=== PATIENT | male | born 1960 | race Caucasian/White ===

== ENCOUNTER 2016-06-11 17:58 | Inpatient (IN) | payer MEDICAID, OTHER ==
[~2016-06-11] VITALS: Ht 185.4 cm; Wt 127.0 kg
[2016-06-11 18:29] VITALS: BP 159/106
--- NOTE | 2016-06-11 18:45 | NUR ---
PT TAKEN TO BED 3.
--- NOTE | 2016-06-11 19:07 | NUR ---
PT RETURN FROM CT
--- NOTE | 2016-06-11 19:12 | NUR ---
Dr. Ho evaluating patient at bedside.
--- NOTE | 2016-06-11 19:30 | NUR ---
55Y MALE CAME TO ER C/O OF NUMBNESS AND TINGLING SENSATION TO LEFT SIDE OF THE BODY WITH MILD WEAK TO LT ARM. FACE ASSYMETRICAL AND SPEECH CLEAR, ALERT AND ORIENTED. ANSWERS [place] APPROPRIATELY. DENIES PAIN. V/S MONITORED (SEE VS) NEURO ASSESMENT DONE (SEE NEURO CHECK).
[2016-06-11] MEDS ORDERED: ASPIRIN 325 MG TAB PO ONE (20:05)
[2016-06-11] MEDS ORDERED: DOCUSATE SODIUM 100 MG GELCAP PO PRN (20:45)
[2016-06-11] MEDS ORDERED: ONDANSETRON 4 MG/2 ML VIAL IVP PRN (20:45)
[2016-06-11] MEDS ORDERED: MORPHINE SULFATE 2 MG/ML SYR IVP PRN (20:45)
[2016-06-11] MEDS ORDERED: ACETAMINOPHEN 325 MG TAB PO PRN (20:45)
[2016-06-11] MEDS ORDERED: HYDROcodone/APAP 5/325 MG 1 TAB TAB PO PRN (20:45)
--- NOTE | 2016-06-11 21:26 | NUR ---
Patient will be admitted to care of DR. CARTWRIGHT. Admited to TELE. Will go to room 106B. Belongings list completed. Report to CHICA Norman RN.
--- NOTE | 2016-06-11 21:30 | NUR ---
Admitted from E.. with chief complaint of LEFT SIDED WEAKNESS AND NUMBNESS. A 55 y/o. Male, Appropriate. ALERT AWAKE ORIENTED X4. INITIAL ASSESSMENT DONE. NO S/S OF RESPIRATORY DISTRESS OR SOB NOTED. NO C/O PAIN OR ANY DISCOMFORT AT THIS TIME. SKIN IS INTACT CLEAN DRY AND WARM TO TOUCH. PLAN OF CARE REVIEWED TO PT AND VERBALIZED UNDERSTANDING. oriented to call light, bed, phone,television, bathroom, smoking policy, visiting hours, procedures, ID bracelet on. Belongings list checked. CALL LIGHT WITHIN REACH. WILL CONTINUE TO MONITOR.
[2016-06-11] MEDS: ATORVASTATIN 20 MG TAB PO SCH (21:44)
[2016-06-12] VITALS: BP 139/95
--- NOTE | 2016-06-12 00:40 | NUR ---
PT IS ASLEEP RIGHT NOW BUT EASILY AROUSABLE. NO S/S OF ANY DISCOMFORT AT THIS TIME. ALL NEEDS ARE ATTENDED. CALL LIGHT WITHIN REACH. WILL CONTINUE TO MONITOR.
--- NOTE | 2016-06-12 03:00 | NUR ---
PT REFUSED TO HAVE SCD'S ON DESPITE EXPLAINING THE RISKS AND BENEFITS OF IT. WILL TRY TO CONVINCE HIM LATER. WILL CONTINUE TO MONITOR.
[2016-06-12 04:00] VITALS: BP 143/94
--- NOTE | 2016-06-12 06:00 | NUR ---
AM CARE RENDERED. BED LINEN CHANGED. INSTRUCTED PT TO REPOSITION. KEPT CLEAN AND DRY. CALL LIGHT WITHIN REACH. WILL CONTINUE TO MONITOR.
--- NOTE | 2016-06-12 07:16 | NUR ---
PT HAS NO S/S OF ANY DISCOMFORT. PLAN OF CARE ENDORSED TO KEISHA LA AT BEDSIDE FOR CONTINUITY OF CARE.
--- NOTE | 2016-06-12 07:17 | NUR ---
RECEIVED REPORT FROM BESSIE COTO. PT IS LYING ON BED, AAO X4, SKIN INTACT, IV ON RIGHT HAND FLUSHED PATENT AND INTACT ON SL, INITIAL ASSESSMENT DONE, NO S/S OF RESPIRATORY DISTRESS OR DISCOMFORT NOTED, DISCUSSED PLAN OF CARE, PT VERBALIZED UNDERSTANDING, SAFETY/FALL PRECAUTION ENFORCED, CALL LIGHT WITHIN REACH, WILL CONTINUE TO MONITOR.
[2016-06-12 08:00] VITALS: BP 149/94
--- NOTE | 2016-06-12 08:09 | NUR ---
DR. PEDRAZA IS IN THE NURSE'S STATION.
[2016-06-12] MEDS: PANTOPRAZOLE 40 MG TABEC PO SCH (08:13)
[2016-06-12] MEDS: ATORVASTATIN 20 MG TAB PO SCH (08:13)
--- NOTE | 2016-06-12 08:16 | NUR ---
DUE MEDS GIVEN, PT TOLERATED WELL, MEDICAL STUDENT AT BEDSIDE ASSESSING PT. CALL LIGHT WITHIN REACH, WILL CONTINUE TO MONITOR.
--- NOTE | 2016-06-12 08:30 | NUR ---
PATIENT HAS BEEN SCREENED AND CATEGORIZED MODERATE NUTRITION RISK. PATIENT WILL BE SEEN WITHIN 3-5 DAYS OF ADMISSION. 06/14/16-06/16/[address] Addendum: 06/12/16 at [address] PATIENT HAS BEEN RESCREENED AND RE CATEGORIZED HIGH NUTRITION RISK. PATIENT WILL BE SEEN WITHIN 1-2 DAYS OF ADMISSION. 06/12/16-06/13/[address]
[2016-06-12] MEDS ORDERED: ASPIRIN 81 MG TAB.CHEW PO SCH (09:00)
[2016-06-12] MEDS: NACL 0.9% 1,000 ML IV SCH ×3 (09:51→20:56)
--- NOTE | 2016-06-12 09:55 | NUR ---
PHYSICAL THERAPIST AT BEDSIDE WORKING ON PT.
[2016-06-12] MEDS ORDERED: MAG SULF 2000 MG/WATER PREMIX 50 ML IV SCH (10:00)
--- NOTE | 2016-06-12 11:25 | NUR ---
PT IS SLEEPING AT THIS TIME, NO S/S OF RESPIRATORY DISTRESS OR DISCOMFORT NOTED, CALL LIGHT WITHIN REACH, WILL CONTINUE TO MONITOR.
[2016-06-12 12:00] VITALS: BP 152/74
--- NOTE | 2016-06-12 14:09 | NUR ---
ULTRASOUND IS IN PROGRESS AT THIS TIME.
[2016-06-12 16:00] VITALS: BP 121/78
--- NOTE | 2016-06-12 16:46 | NUR ---
* ST NOTE * Bedside Dysphagia and Oral Mechanism exams completed at bedside with charge nurse present. Pt tolerating 8/8 alternating PO trials of regular solid saltine crackers w/out s/s of aspiration, exhibiting no residue or pocketing of food in oral cavity after PO intake. Pt also tolerating 6/6 alternating PO trials of successive sips of thin liquid apple juice via a straw w/out s/s of aspiration. Pt exhibiting clear voicing WFL w/out wet or gargly vocal quality after PO intake of thin liquids. Pt's laryngeal elevation and laryngeal excursion also appearing WFL w/out delay. Pt and caregiver/nursing education completed regarding results of evaluation; benefits of abiding by aspiration precautions and recommended PO diet consistency; and prognosis for improvement; with pt and caregiver/nursing agreeable with clinician's recommendations. Recommend: - PO diet consistency of Mechanical soft textures with thin liquids for all meals - Distal supervision during PO intake to assure aspiration precautions are in place No further ST follow up recommended at this time. G8996 G8997 CI G8998 CI NOMS Level 2 Time In/Out: 16:25 - 16:55
[2016-06-12] MEDS: BLOOD GLUCOSE MONITORING 1 DEV DEV FS SCH ×2 (16:51→20:58)
[2016-06-12] MEDS: INSULIN ASPART SLIDING SCALE 100 UNITS/ML VIAL SUBQ PRN ×2 (17:35→21:01)
--- NOTE | 2016-06-12 17:37 | NUR ---
DINNER SERVED, PT HAS GOOD APPETITE, NO S/S OF RESPIRATORY DISTRESS OR DISCOMFORT NOTED, ALL NEEDS MET AT THIS TIME, CALL LIGHT WITHIN REACH, WILL CONTINUE TO MONITOR.
--- NOTE | 2016-06-12 19:15 | NUR ---
ENDORSED PT TO BESSIE MANDUJANO FOR CONTINUITY OF CARE. PT IS STABLE AT THIS TIME.
--- NOTE | 2016-06-12 19:16 | NUR ---
RECEIVED PT IN STABLE CONDITION FROM BESSIE VALDES. NO SOB, NO SIGNS OF DISTRESS. VS STABLE ON ROOM AIR. IV TO RT HAND 20G PATENT, ASYMPTOMATIC, INTACT, IVF RUNNING. PT DENIES PAIN AT THIS TIME. PT WITH LT SIDED WEAKNESS, AMBULATES WITH STANDBY ASSIST. SKIN INTACT. PLAN OF CARE DISCUSSED WITH PT. SAFETY MEASURES IN PLACE. CALL LIGHT WITHIN REACH. WILL CONTINUE TO MONITOR.
[2016-06-12 20:00] VITALS: BP 150/90
--- NOTE | 2016-06-12 21:01 | NUR ---
PT TOLERATED DUE MEDS WELL. NO SOB, NO SIGNS OF DISTRESS. IV SITE ASYMPTOMATIC, INTACT, PATENT, IVF RUNNING. PT DENIES PAIN AT THIS TIME. PLAN OF CARE DISCUSSED WITH PT. SAFETY MEASURES IN PLACE. CALL LIGHT WITHIN REACH. WILL CONTINUE TO MONITOR.
--- NOTE | 2016-06-12 23:50 | NUR ---
VS STABLE ON ROOM AIR. NO SOB, NO SIGNS OF DISTRESS. IV SITE ASYMPTOMATIC, INTACT, PATENT, IVF RUNNING. PT DENIES PAIN AT THIS TIME. PLAN OF CARE DISCUSSED WITH PT. SAFETY MEASURES IN PLACE. CALL LIGHT WITHIN REACH. WILL CONTINUE TO MONITOR.
[2016-06-13] VITALS: BP 124/94
--- NOTE | 2016-06-13 02:00 | NUR ---
PT ASLEEP IN BED. NO SOB, NO SIGNS OF DISTRESS. IV SITE ASYMPTOMATIC, INTACT, PATENT, IVF RUNNING, REPLACED IVF BAG. SAFETY MEASURES IN PLACE. CALL LIGHT WITHIN REACH. WILL CONTINUE TO MONITOR.
[2016-06-13] MEDS: NACL 0.9% 1,000 ML IV SCH ×3 (02:30→11:32)
[2016-06-13 04:00] VITALS: BP 143/93
--- NOTE | 2016-06-13 06:15 | NUR ---
FOUND PT WITH IV TO RT HAND PULLED OUT. CANNULA INTACT. CT HERE TO TAKE PT FOR CT. WILL START IV WHEN PT RETURNS TO FLOOR. NO SOB, NO SIGNS OF DISTRESS. PT DENIES PAIN AT THIS TIME. PT LEFT FOR CT.
[2016-06-13] MEDS: BLOOD GLUCOSE MONITORING 1 DEV DEV FS SCH ×2 (06:22→11:31)
[2016-06-13] MEDS: INSULIN ASPART SLIDING SCALE 100 UNITS/ML VIAL SUBQ PRN ×2 (06:23→12:06)
--- NOTE | 2016-06-13 07:00 | NUR ---
STARTED NEW IV TO RT FE 20G PATENT, ASYMPTOMATIC, INTACT, IVF RUNNING. PT TOLERATED WELL.
--- NOTE | 2016-06-13 07:05 | NUR ---
ENDORSED PT IN STABLE CONDITION TO BESSIE GIPSON. ALL NEEDS HAVE BEEN MET AT THIS TIME.
--- NOTE | 2016-06-13 07:06 | NUR ---
RECEIVED REPORT FROM PEDIATRIC PHYSICIAN BESSIE MANDUJANO. PT IS A/O X 4 AND AMBULATORY. RFA 20 IV, PATENT AND INTACT. LBM 06/13/16. NO S/S OF ACUTE CARDIAC/RESPIRATORY DISTRESS OR DISCOMFORT. SAFETY MEASURES IN PLACE, CALL LIGHT WITHIN REACH. WILL CONTINUE PLAN OF CARE AND CONTINUE TO MONITOR.
[2016-06-13 07:51] VITALS: BP 155/100
[2016-06-13] MEDS ORDERED: ASPIRIN 325 MG TAB PO SCH (09:00)
[2016-06-13] MEDS: ATORVASTATIN 20 MG TAB PO SCH (09:13)
[2016-06-13] MEDS: PANTOPRAZOLE 40 MG TABEC PO SCH (09:13)
--- NOTE | 2016-06-13 10:11 | NUR ---
PT IS RESTING WITH HIS EYES CLOSED. NO S/S OF ACUTE DISTRESS OR DISCOMFORT. CALL LIGHT WITHIN REACH, WILL CONTINUE TO MONITOR.
[2016-06-13 12:00] VITALS: BP 119/77
--- NOTE | 2016-06-13 12:13 | NUR ---
PT RESTING WITH EYES CLOSED. NO S/S OF ACUTE DISTRESS OR DISCOMFORT. PT WILL BE SEEN BY PT NOW. CALL LIGHT WITHIN REACH. WILL CONTINUE TO MONITOR.
--- NOTE | 2016-06-13 13:04 | NUR ---
06/13/16 RD INITIAL ASSESSMENT COMPLETED PLEASE REFER TO NUTRITION ASSESSMENT UNDER CARE ACTIVITY FOR ESTIMATED NUTRITIONAL NEEDS. RD RECOMMENDATIONS: 1. CONTINUE CCHO 60 GM DIET MEDICALLY APPROPRIATE. --NOTE PT CURRENTLY MEETS 55% OF PT ESTIMATED KCAL NEEDS AND 47% OF PT ESTIMATED PROTEIN NEEDS WITH AN AVG PO INTAKE OF 55%. --FAIR 2. IF/WHEN PT APPETITE IMPROVES, CONSIDER ADDING CARDIAC DIET TO CURRENT DIET D/T PT WITH PMH OF HTN AND HLD. --NOTE SINCE PT APPETITE IS NOT ADEQUATE AT THIS MOMENT, THERE IS NO NEED TO ADD ANOTHER RESTRICTION ONTO PT DIET. 3. RD LEFT DM DIET EDUCATION HANDOUT NEAR PT BEDSIDE. RD WILL FOLLOW UP WITH DIET EDUCATION DURING NEXT VISIT. 4. RD WILL F/U 3-5 DAYS; MODERATE RISK. LAVERN MACEDO RD
--- NOTE | 2016-06-13 14:21 | NUR ---
PHYSICAL THERAPY CO-SIGN The Physical Therapy Progress Notes documented by Map And Chart Mounter have been reviewed. I CONCUR W/SERVICE SECRETARY NOTE; CONT PER TX PLAN Reviewed/Co-Signed by: Evelyne Frazier PT Documentation Done by: RUSSELL PUENTE SERVICE SECRETARY Addendum: 06/13/16 at 1421 by Evelyne Frazier PT Amended: Links added.
--- NOTE | 2016-06-13 14:55 | NUR ---
PT IS SLEEPING. NO S/S OF ACUTE DISTRESS OR DISCOMFORT. CALL LIGHT WITHIN REACH. WILL CONTINUE TO MONITOR.
[2016-06-13] MEDS ORDERED: ASPIRIN325 M2 PO (15:13)
[2016-06-13] MEDS ORDERED: ATORVASTATIN CA20 MG PO (15:13)
[2016-06-13] MEDS ORDERED: CARVEDILOL6.25 MG PO (15:13)
[2016-06-13] MEDS ORDERED: LISINOPRIL10 M1 PO (15:15)
[2016-06-13] MEDS ORDERED: METFORMIN850 MG PO (15:16)
--- NOTE | 2016-06-13 15:45 | NUR ---
DISCHARGE INSTRUCTIONS PROVIDED TO PT, PT VERBALIZED UNDERSTANDING. PT SIGNED DISCHARGE PAPERWORK, PROVIDED A COPY. ARM BANDS REMOVED. IV REMOVED, INTACT. PT HAS NO S/S OF ACUTE DISTRESS OR DISCOMFORT. PT IN STABLE CONDITION. WHEELCHAIRED PT TO FRONT LOBBY TO BE PICKED UP BY FRIEND.
== END 2016-06-13 15:45 | disposition home or self-care (01) | DRG 45 ==
LOC: MED 17:58 → MTU 20:41
PROVIDERS: ADMIT Family Medicine; ATTEND Family Medicine
DX: I63.9 Cerebral infarction, unspecified (principal); K85.90 Acute pancreatitis without necrosis or infection, unspecified; D68.69 Other thrombophilia; I42.9 Cardiomyopathy, unspecified; E11.51 Type 2 diabetes mellitus with diabetic peripheral angiopathy without gangrene; E11.65 Type 2 diabetes mellitus with hyperglycemia; G81.94 Hemiplegia, unspecified affecting left nondominant side; G90.9 Disorder of the autonomic nervous system, unspecified; E83.42 Hypomagnesemia; I10 Essential (primary) hypertension; E78.5 Hyperlipidemia, unspecified; F15.10 Other stimulant abuse, uncomplicated; Z68.36 Body mass index [BMI] 36.0-36.9, adult; Z86.73 Personal history of transient ischemic attack (TIA), and cerebral infarction without residual deficits

== ENCOUNTER 2018-06-04 02:25 | Emergency (ER) | payer MEDICAID, OTHER ==
[~2018-06-04] VITALS: Ht 185.4 cm; Wt 122.5 kg
[~2018-06-04 02:25] MED LIST: ASPI-1205 PO; ATOR20TA40 PO; CARV6.252 PO; LISI10TA11 PO; METF-350 PO
[2018-06-04 02:29] VITALS: BP 117/70
--- NOTE | 2018-06-04 02:33 | NUR ---
To bed 12 via w/c.
[2018-06-04] MEDS ORDERED: NACL 0.9% 1,000 ML IV ONE ×2 (02:35→03:40)
[2018-06-04] MEDS ORDERED: KETOROLAC 30 MG/ML VIAL IVP ONE (02:35)
--- NOTE | 2018-06-04 02:35 | NUR ---
ASSUMED CARE OF PT AT THIS TIME. C/O COLD/FLU SYMPTOMS X 3 DAYS. AAOX4 WITH EVEN AND STEADY GAIT; PATIENT STATES PAIN OF 5/10; VSS; PATIENT POSITIONED FOR COMFORT; HOB ELEVATED; BEDRAILS UP X2; BED DOWN. ER MD MADE AWARE OF PT STATUS. WILL CONTINUE TO MONITOR.
[2018-06-04] MEDS ORDERED: MORPHINE SULFATE 4 MG/ML SYR IVP ONE (03:05)
[2018-06-04] MEDS ORDERED: MORPHINE SULFATE 2 MG/ML SYR ONE (03:20)
[2018-06-04 04:20] VITALS: BP 127/80
--- NOTE | 2018-06-04 04:20 | NUR ---
Patient discharged with v/s stable. Written and verbal after care instructions given and explained. Patient alert, oriented and verbalized understanding of instructions. Ambulatory with steady gait. All questions addressed prior to discharge. ID band removed. Patient advised to follow up with PMD. Rx of MOTRIN, PREDNISONE, AND NORCO given. Patient educated on indication of medication including possible reaction and side effects. Opportunity to ask questions provided and answered.
== END 2018-06-04 04:20 | disposition home or self-care (01) ==
LOC: MED 02:25
DX: R50.9 Fever, unspecified (principal); R00.0 Tachycardia, unspecified; M25.561 Pain in right knee; R05 Cough; J34.89 Other specified disorders of nose and nasal sinuses; I11.0 Hypertensive heart disease with heart failure; I50.9 Heart failure, unspecified; E11.9 Type 2 diabetes mellitus without complications; F17.200 Nicotine dependence, unspecified, uncomplicated; Z86.73 Personal history of transient ischemic attack (TIA), and cerebral infarction without residual deficits; Z79.82 Long term (current) use of aspirin; Z79.84 Long term (current) use of oral hypoglycemic drugs; Z79.899 Other long term (current) drug therapy; Z98.890 Other specified postprocedural states
CPT/HCPCS: 36415; 87804; 96374; 96375; 99283; J1885; J2270; J7030

== ENCOUNTER 2018-06-05 09:19 | Inpatient (IN) | payer OTHER ==
[~2018-06-05] VITALS: Ht 185.4 cm; Wt 121.6 kg
--- NOTE | 2018-06-05 09:23 | NUR ---
PATIENT AMBULATED TO BED 8.
[2018-06-05 09:26] VITALS: BP 120/89
--- NOTE | 2018-06-05 09:27 | NUR ---
PATIENT PRESENTS TO ED WITH C/O LEFT FACIAL SWELLING W/ TENDERNESS AND RIGHT KNEE PAIN. DENIES ANY TRAUMA;DENIES SHORTNESS OF BREATH/ CP.PT WAS SEEN HERE IN ER YETSERDAY FOR A FLU.PT HAD A STROKE 2 YEARS AGO AND HAS LEFT SIDED WEAKNESS;SKIN IS PINK/WARM/DRY; AAOX4 WITH EVEN AND STEADY GAIT;PATIENT STATES PAIN OF 5/10 AT THIS TIME;PATIENT POSITIONED FOR COMFORT; HOB ELEVATED; BEDRAILS UP X2; BED DOWN. ER MD MADE AWARE OF PT STATUS.
[2018-06-05] MEDS ORDERED: NACL 0.9% 1,000 ML IV SCH (09:45)
[2018-06-05] MEDS ORDERED: MORPHINE SULFATE 4 MG/ML SYR IVP ONE (09:55)
[2018-06-05] MEDS ORDERED: VANCOMYCIN 1,000 MG in DEXTROSE 5% 250 ML IV ONE (09:55)
[2018-06-05] MEDS ORDERED: VANCOMYCIN 1,000 MG VIAL ONE (10:05)
--- NOTE | 2018-06-05 10:08 | NUR ---
xray at bedside.
--- NOTE | 2018-06-05 10:16 | NUR ---
PT TAKEN TO CT
[2018-06-05 10:31] LABS: HEMATOCRIT 40.7 % (36-52); HEMOGLOBIN 13.5 g/dL (12.0-18.0); MEAN CORPUSCULAR HEMOGLOBIN 30 pg (27-31); MEAN CORPUSCULAR HGB CONC 33 g/dL (33-37); MEAN CORPUSCULAR VOLUME 91.5 fL (80-94); PLATELET COUNT (AUTO) 295 K/uL (140-450); RED BLOOD CELL COUNT(AUTO) 4.45 MIL/uL (4.20-6.10); RED CELL DISTRIBUTION WIDTH 14.7 % (11.6-13.7)
[2018-06-05 10:37] LABS: WHITE BLOOD COUNT (AUTO) 33.9 K/uL (4.8-10.8)
--- NOTE | 2018-06-05 10:41 | NUR ---
LACTIC ACID 2.7, RESULT RECEIVED FROM LAB AT THIS TIME. HA RUIZ NOTIFIED.
[2018-06-05 10:43] LABS: PROTHROMBIN TIME 9.7 secs (10.8-13.4)
[2018-06-05] MEDS ORDERED: NACL 0.9% 3,000 ML IV ONE (10:50)
[2018-06-05 10:52] LABS: LYMPHOCYTES % (MANUAL) 3 % (20-46); MONOCYTES % (MANUAL) 2 % (5-12)
[2018-06-05 11:41] LABS: ALBUMIN 1.9 g/dL (3.4-5.0); ANION GAP 13.4 (8-16); CARBON DIOXIDE 27.5 mmol/L (21-32); CREATININE 1.5 mg/dL (0.7-1.3); POTASSIUM 3.9 mmol/L (3.5-5.1); TOTAL BILIRUBIN 0.6 mg/dL (0.0-1.0)
--- NOTE | 2018-06-05 11:44 | NUR ---
PT RESTING ON BED; ALL MONITORS IN PLACED. WILL CONTINUE TO MONITOR PT.
--- NOTE | 2018-06-05 12:45 | NUR ---
Patient will be admitted to care of Dr Magaña. Admited to Med Surg. Will go to [id number]. Belongings list completed. Report to BESSIE Zhao.
--- NOTE | 2018-06-05 13:00 | NUR ---
RECEIVED PT FROM THE ED NURSE. PT IS ALERT AND AWAKE, NO S/S OF ACUTE DISTRESS, NO SOB. PT IS ON ROOM AIR. L NECK AND CHEST AREA NOTED TO BE RED AND EDEMATOUS, (NO DRAINAGE OR OPEN SKIN). VARICOSE VEINS NOTED ON BILATERAL ANKLES. INTERMITTENT PRODUCTIVE COUGH NOTED. NARES SWABBED FOR MRSA. TWO IV SITES NOTED: LAC 20 G, AND RAC 20 G. CURRENTLY COMPLETING NS BOLUS INFUSION. PT IS TACHYCARDIC, 125 BPM AT THIS TIME. FT IS AFEBRILE, 98.0 ORAL TEMP. PT IS HYPERTENSIVE, BP 160/83 AT ADMISSION. PT C/O R KNEE PAIN. FALL PRECAUTIONS PLACED DUE TO PT UNSTEADY DUE TO KNEE PAIN. PT ALSO C/O SOME WEAKNESS WHILE AMBULATING. CALL LIGHT GIVEN WITHIN REACH. WILL CONT TO MONITOR.
[2018-06-05 13:10] VITALS: BP 160/83
[2018-06-05] MEDS ORDERED: ONDANSETRON 4 MG/2 ML VIAL IVP PRN (14:00)
[2018-06-05] MEDS ORDERED: MORPHINE SULFATE 2 MG/ML SYR IVP PRN (14:00)
[2018-06-05] MEDS ORDERED: VANCOMYCIN PER PHARMACY MC PRN (14:00)
[2018-06-05] MEDS ORDERED: ACETAMINOPHEN 325 MG TAB PO PRN (14:00)
[2018-06-05] MEDS ORDERED: hydrALAZINE 20 MG/ML VIAL IVP PRN (14:25)
--- NOTE | 2018-06-05 14:25 | NUR ---
PT SEEN BY DR FLOWERS
[2018-06-05] MEDS ORDERED: ALBUTEROL 0.083% 2.5 MG/3 ML NEBU INH PRN (14:30)
[2018-06-05] MEDS ORDERED: VANCOMYCIN 750 MG in DEXTROSE 5% 250 ML IV SCH (15:00)
[2018-06-05] MEDS ORDERED: PIPER/TAZO 3.375GM/D5W PREMIX 50 ML IV SCH ×2 (15:00→21:00)
[2018-06-05] MEDS: NACL 0.9% 1,000 ML IV SCH (15:01)
[2018-06-05 16:00] VITALS: BP 123/66
--- NOTE | 2018-06-05 16:30 | NUR ---
PT'S R AC IV CAME OUT. CATHETER TIP IS INTACT. SITE CLEANED AND COVERED WITH GAUZE.
--- NOTE | 2018-06-05 16:45 | NUR ---
PT HAVING R KNEE X-RAY AT THIS TIME
[2018-06-05] MEDS: CARVEDILOL 6.25 MG TAB PO SCH (17:13)
[2018-06-05] MEDS: VANCOMYCIN 1GM/DEXT 5% PREMIX 200 ML IV SCH (17:13)
--- NOTE | 2018-06-05 17:40 | NUR ---
PT NOTED TO BE FEBRILE. TEMP 100.9. TYLENOL ADMINISTERED AND COOLING MEASURES IN PLACE. DR NEWMAN NOTIFIED. WILL CONTINUE TO MONITOR PT.
[2018-06-05] MEDS ORDERED: DEXTROSE 50% 50 ML SYR IVP PRN (17:45)
--- NOTE | 2018-06-05 18:01 | NUR ---
SCD'S PLACED ON PT. PT EATING DINNER NOW, NO S/S OF ACUTE DISTRESS.
--- NOTE | 2018-06-05 18:31 | NUR ---
RECHECKED PT'S TEMP, 98.4 AT THIS TIME.
--- NOTE | 2018-06-05 19:25 | NUR ---
PT ENDORSED TO GAMBLING BOX PERSON IN STABLE CONDITION.
--- NOTE | 2018-06-05 19:35 | NUR ---
PATIENT IS AWAKE, ALERT, RESPIRATION EVEN UNLABORED ON ROOM AIR. SKIN IS WARM AND DRY. REDNESS AND EDEMATOUS NOTED ON LEFT NECK AND CHEST. IV IS INTACT AND PATENT. PLAN OF CARE WAS DISCUSSED. ALL SAFETY PRECAUTION IN PLACE. BED IS IN LOW POSITION. CALL LIGHT WITHIN REACH.
--- NOTE | 2018-06-05 20:00 | NUR ---
PATIENT IS AWAKE, ALERT RESPIRATION EVEN UNLABORED ON ROOM AIR. DENIES PAIN. VITAL SIGNS STABLE. MEDS WERE GIVEN PER ORDER. WILL CONTINUE TO MONITOR.
[2018-06-05] MEDS: BLOOD GLUCOSE MONITORING 1 DEV DEV FS SCH (20:04)
[2018-06-05] MEDS: INSULIN LISPRO SLIDING SCALE 100 UNITS/ML VIAL SUBQ PRN (20:05)
[2018-06-05] MEDS ORDERED: VANCOMYCIN 1,500 MG in DEXTROSE 5% 250 ML IV SCH (21:00)
[2018-06-05] MEDS ORDERED: AMPICILLIN/SULBACTAM 3 GM VIAL ONE (23:40)
[2018-06-05] MEDS: AMPICILLIN/SULBACTAM 3 GM in NACL 0.9% 100 ML IV SCH (23:43)
[2018-06-06] VITALS: BP 126/65
--- NOTE | 2018-06-06 00:40 | NUR ---
PATIENT ASKED FOR SLEEPING AID. DUE TO INABILITY TO FALL ASLEEP. SPOKE TO DR. MEJIA ABOUT THE SITUATION. ORDERED AMBIEN 5MG PO QHS PRN FOR INSOMIA.
[2018-06-06] MEDS ORDERED: ZOLPIDEM 5 MG TAB PO PRN (00:45)
[2018-06-06] MEDS: VANCOMYCIN 1GM/DEXT 5% PREMIX 200 ML IV SCH ×2 (01:00→11:34)
--- NOTE | 2018-06-06 01:00 | NUR ---
RECHECKED PATIENT SLEEPING AID WAS EFFECTIVE. PATIENT IS ASLEEP RESPIRATION EVEN UNLABORED ON ROOM AIR. NO DISTRESS NOTED AT THIS TIME. BED IS IN LOW POSITION. CALL LIGHT WITHIN REACH. WILL CONTINUE TO MONITOR.
[2018-06-06] MEDS: AMPICILLIN/SULBACTAM 3 GM in NACL 0.9% 100 ML IV SCH ×2 (05:26→13:51)
[2018-06-06] MEDS ORDERED: AMPICILLIN/SULBACTAM 3 GM VIAL ONE (05:27)
[2018-06-06] MEDS: INSULIN LISPRO SLIDING SCALE 100 UNITS/ML VIAL SUBQ PRN ×3 (06:09→16:55)
[2018-06-06] MEDS: BLOOD GLUCOSE MONITORING 1 DEV DEV FS SCH ×3 (06:12→16:48)
[2018-06-06 06:53] LABS: HEMOGLOBIN 12.8 g/dL (12.0-18.0); MEAN CORPUSCULAR HEMOGLOBIN 30 pg (27-31); MEAN CORPUSCULAR HGB CONC 33 g/dL (33-37); MEAN CORPUSCULAR VOLUME 91.4 fL (80-94); PLATELET COUNT (AUTO) 292 K/uL (140-450); RED BLOOD CELL COUNT(AUTO) 4.27 MIL/uL (4.20-6.10); RED CELL DISTRIBUTION WIDTH 14.8 % (11.6-13.7)
--- NOTE | 2018-06-06 07:18 | NUR ---
ENDORSED PATIENT TO AM NURSE CARLIN FOR CONTINUITY OF CARE. PATIENT IS STABLE AT THIS TIME
--- NOTE | 2018-06-06 07:19 | NUR ---
RECEIVED BEDSIDE REPORT FROM FLAME HARDENING MACHINE SETTER NURSE. PATIENT IS SLEEPING. NO SIGNS OF DISTRESS ON RA. SKIN HAS L NECK ABSCESS W EDEMA TO THE L SIDE. PATIENT IS AMBULATORY W ASSIST D/T R KNEE PAIN. FALL RISK PROTOCOL IN PLACE. L AC 20G INFUSING NS AT 30. CLEAN, DRY AND INTACT. PATIENT INCONTINENT. BED IN LOW POSITION. CALL LIGHT WITHIN REACH. WILL CONTINUE TO MONITOR THE PATIENT.
[2018-06-06 07:31] LABS: ALBUMIN 1.4 g/dL (3.4-5.0); ANION GAP 9.7 (8-16); CARBON DIOXIDE 26.4 mmol/L (21-32); CREATININE 1.2 mg/dL (0.7-1.3); POTASSIUM 3.1 mmol/L (3.5-5.1); TOTAL BILIRUBIN 1.1 mg/dL (0.0-1.0)
[2018-06-06 07:43] LABS: WHITE BLOOD COUNT (AUTO) 30.5 K/uL (4.8-10.8)
[2018-06-06 07:44] LABS: LYMPHOCYTES % (MANUAL) 6 % (20-46)
[2018-06-06 07:45] LABS: MONOCYTES % (MANUAL) 4 % (5-12)
[2018-06-06 08:00] VITALS: BP 138/90
[2018-06-06] MEDS ORDERED: NON-FORMULARY ITEM (Lisinopril 1 TAB) PO SCH (09:00)
[2018-06-06] MEDS ORDERED: ASPIRIN 325 MG TAB PO SCH (09:00)
[2018-06-06] MEDS ORDERED: ATORVASTATIN 20 MG TAB PO SCH (09:00)
[2018-06-06] MEDS ORDERED: NON-FORMULARY ITEM (Atorvastatin Calcium 40 MG) PO SCH (09:00)
[2018-06-06] MEDS ORDERED: ENOXAPARIN 40 MG/0.4 ML SYR SUBQ SCH (09:00)
[2018-06-06] MEDS ORDERED: LISINOPRIL 10 MG TAB PO SCH (09:00)
[2018-06-06] MEDS: CARVEDILOL 6.25 MG TAB PO SCH ×2 (09:07→16:47)
--- NOTE | 2018-06-06 09:10 | NUR ---
ADMINISTERED MEDS, PATIENT TOLERATED WELL. WILL CONTINUE TO MONITOR THE PATIENT
--- NOTE | 2018-06-06 10:45 | NUR ---
DR FLOWERS SAID TO TRANSFER THE PATIENT TO [facility], TOLD [employer] CHARGE NURSE.
--- NOTE | 2018-06-06 11:36 | NUR ---
DR MORATAYA AWARE OF BLOOD CX POSITIVE GRAM COCCI IN CHAINS AND PAIRS. HE SAID PATIENT IS OK AND GOING TO BE TRANSFERRED SO NO CHANGES IN ORDERS.
[2018-06-06] MEDS ORDERED: POTASSIUM CHLORIDE 40 MEQ, LIDOCAINE MPF 1% - 5 mL VIAL 25 MG in NACL 0.9% 250 ML IV SCH (12:00)
--- NOTE | 2018-06-06 12:16 | NUR ---
ADMINISTERED PRN HUMALOG. PATIENT TOLERATED WELL. FAMILY AT BEDSIDE. WILL CONTINUE TO MONITOR
--- NOTE | 2018-06-06 12:39 | NUR ---
PATIENT SMOKED IN THE RESTROOM. TOLD PATIENT HE IS NOT ALLOWED TO DO THAT. HE SAID I DIDNT LET HIM GO OUTSIDE SO HE SMOKED IN THE RESTROOM. PATIENT SAID OK. TOLD HIM THE RISKS OF SMOKING AT THE HOSPITAL, OXYGEN, FIRE ALARM, ETC. PATIENT VERBALIZED UNDERSTANDING. TOLD PATIENT HE NEEDS TO STAY IN BED D/T WEAKNESS. PATIENT REFUSES AND SITTING AT THE CHAIR. TOLD HIM HE IS A HIGH RISK FOR FALLS.
[2018-06-06] MEDS: NACL 0.9% 1,000 ML IV SCH (14:00)
--- NOTE | 2018-06-06 14:47 | NUR ---
PATIENT GETTING A BED BATH FROM THE TWO STUDENT NURSES. AFTER PATIENT WILL GO ON WHEELCHAIR AND BE WHEELED AROUND W STEP BROTHER. WILL CHANGE BED WHILE PATIENT IS WALKING AROUND THE HALLS.
--- NOTE | 2018-06-06 15:10 | NUR ---
PATIENT GETTING WHEELED AROUND THE HALLS BY STEP BROTHER. STUDENT NURSES CHANGING THE BED AT THIS TIME
[2018-06-06 16:00] VITALS: BP 110/55
--- NOTE | 2018-06-06 17:30 | NUR ---
GAVE TELEPHONE REPORT TO LEVI CHARGE NURSE. NO SIGNS OF DISTRESS. BED IN LOW POSITION. WILL CONTINUE TO MONITOR
--- NOTE | 2018-06-06 19:15 | NUR ---
EDUCATED PATIENT ON DISEASE PROCESS, ABN S/SX, EDUCATED ON ENT DOCTOR TO SEE PATIENT IN [place], PATIENT VERBALIZED UNDERSTANDING. GAVE REPORT TO [facility] STAFF. PATIENT LEFT IN STABLE CONDITION W IV ON L AC 20G SL. REMOVED ID BANDS.
--- NOTE | 2018-06-07 14:10 | NUR ---
CM NOTE PER ZARINA OF [facility] PH# [phone], THE EARLIEST AVAILABLE CLINIC APPOINTMENT THEY HAVE IS ON JULY 23, 2018, 2:00 PM AT THE CLINIC AT [address] [place] [address] [place] [id number] AND THEY ARE AWARE THAT THIS IS AN OUTPATIENT FOLLOW UP APPOINTMENT POST HOSPITAL ADMISSION. PER ZARINA, DR[facility] WILL BE UNAVAILABLE DURING THAT TIME AND PATIENT WILL BE SEEN BY DR. VICTOR FOR THIS OUTPATIENT FOLLOW UP. SPOKE WITH PATIENT PH# [phone] AND I GAVE HIM HIS OUTPATIENT FOLLOW UP SCHEDULE.
--- NOTE | 2018-06-07 22:33 | NUR ---
Called BESSIE Healy, pt's primary nurse at [facility], and notified him of Blood culture result. Faxed result to his attention to with confirmation.
== END 2018-06-06 19:15 | disposition short-term general hospital (02) | DRG 720 ==
LOC: MED 09:19 → MTU 12:19
PROVIDERS: ADMIT Hospitalist; ATTEND Hospitalist
DX: A41.9 Sepsis, unspecified organism (principal); E43 Unspecified severe protein-calorie malnutrition; I11.0 Hypertensive heart disease with heart failure; L89.154 Pressure ulcer of sacral region, stage 4; I50.9 Heart failure, unspecified; K94.22 Gastrostomy infection; L02.11 Cutaneous abscess of neck; L03.221 Cellulitis of neck; E11.9 Type 2 diabetes mellitus without complications; I25.10 Atherosclerotic heart disease of native coronary artery without angina pectoris; F17.210 Nicotine dependence, cigarettes, uncomplicated; Z79.82 Long term (current) use of aspirin; Z79.899 Other long term (current) drug therapy; Z86.73 Personal history of transient ischemic attack (TIA), and cerebral infarction without residual deficits; Z88.1 Allergy status to other antibiotic agents; Z86.61 Personal history of infections of the central nervous system
CPT/HCPCS: 36415; 70490; 71045; 73562; 76536; 80053; 80202; 82550; 82948; 83605; 84550; 85025; 85610; 85730; 87040; 87081; 87186; 93005; 96361; 96365; 96366; 96375; 99285; J0295; J1650; J1815; J2001; J2270; J2543; J3370; J3480; J7030; J7060; Q0092

== ENCOUNTER 2018-07-02 12:02 | Inpatient (IN) | payer OTHER ==
[~2018-07-02] VITALS: Ht 182.9 cm; Wt 125.6 kg
[2018-07-02 12:21] VITALS: BP 151/89
--- NOTE | 2018-07-02 13:13 | NUR ---
PT BIB FAMILY C/O BILAT LOW LEG SWELLING/EDEMA OFF AND ON X YEARS PAIN 11/03, DENIES N/V/D; SKIN IS PINK/WARM/DRY; AAOX4 WITH EVEN AND STEADY GAIT; LUNGS CLEAR BL; HR EVEN AND REGULAR; PT DENIES ANY FEVER, CP, SOB, OR COUGH AT THIS TIME; PATIENT STATES PAIN OF RIGHT KNEE 11/03 AT THIS TIME; PATIENT POSITIONED FOR COMFORT; HOB ELEVATED; BEDRAILS UP X2; BED DOWN. ER MD MADE AWARE OF PT STATUS.
[2018-07-02] MEDS ORDERED: NACL 0.9% 500 ML IV SCH (13:31)
[2018-07-02] MEDS ORDERED: ONDANSETRON 4 MG/2 ML VIAL IVP ONE (13:35)
[2018-07-02] MEDS ORDERED: MORPHINE SULFATE 4 MG/ML SYR IM ONE (13:35)
[2018-07-02] MEDS ORDERED: MORPHINE SULFATE 4 MG/ML SYR IVP ONE (14:20)
[2018-07-02 14:22] LABS: BASOPHILS # (AUTO) 0.1 K/uL (0.00-0.22); BASOPHILS % (AUTO) 0.8 % (0.0-2.0); EOSINOPHILS # (AUTO) 0.6 K/uL (0-0.4); EOSINOPHILS % (AUTO) 6.3 % (0.0-4.0); HEMATOCRIT 26.2 % (36-52); HEMOGLOBIN 8.6 g/dL (12.0-18.0); LYMPHOCYTES # (AUTO) 1.9 K/uL (2.0-11.5); LYMPHOCYTES % (AUTO) 18.8 % (20.5-51.1); MEAN CORPUSCULAR HEMOGLOBIN 30 pg (27-31); MEAN CORPUSCULAR HGB CONC 33 g/dL (33-37); MEAN CORPUSCULAR VOLUME 90.3 fL (80-94); MONOCYTES # (AUTO) 0.8 K/uL (0.8-1.0); MONOCYTES % (AUTO) 7.8 % (1.7-9.3); NEUTROPHILS # (AUTO) 6.8 K/uL (1.8-7.7); NEUTROPHILS % (AUTO) 66.3 % (42.2-75.2); RED CELL DISTRIBUTION WIDTH 16.2 % (11.6-13.7); WHITE BLOOD COUNT (AUTO) 10.2 K/uL (4.8-10.8)
[2018-07-02 14:34] LABS: PLATELET COUNT (AUTO) 768 K/uL (140-450)
[2018-07-02 14:43] LABS: PROTHROMBIN TIME 11.9 secs (10.8-13.4)
[2018-07-02 14:53] LABS: ACETONE, SERUM NEGATIVE (NEGATIVE)
[2018-07-02 14:55] LABS: ANION GAP 10.9 (8-16); CARBON DIOXIDE 28.6 mmol/L (21-32); POTASSIUM 3.5 mmol/L (3.5-5.1)
[2018-07-02 14:58] LABS: ALBUMIN 2.1 g/dL (3.4-5.0); TOTAL BILIRUBIN 0.3 mg/dL (0.0-1.0)
[2018-07-02 15:27] LABS: MAGNESIUM 1.4 mg/dL (1.8-2.4); URIC ACID 4.2 mg/dL (2.6-7.2)
[2018-07-02] MEDS ORDERED: LORazepam 2 MG/ML VIAL IVP PRN (16:30)
[2018-07-02] MEDS ORDERED: HYDROcodone/APAP 5/325 MG 1 TAB TAB PO PRN (16:30)
[2018-07-02] MEDS ORDERED: ONDANSETRON 4 MG/2 ML VIAL IVP PRN (16:30)
[2018-07-02] MEDS ORDERED: ACETAMINOPHEN 325 MG TAB PO PRN (16:30)
[2018-07-02] MEDS ORDERED: DEXTROSE 50% 50 ML SYR IVP PRN (16:40)
--- NOTE | 2018-07-02 17:24 | NUR ---
PT TAKEN OFF THE UNIT FOR CT ABD/CHEST VIA GURNEY BY FINISHER POLISHER JADEN
[2018-07-02 17:46] LABS: APPEARANCE,URINE CLEAR (CLEAR); BILIRUBIN,URINE 1+ (NEGATIVE); BLOOD, URINE 2+ (NEGATIVE); COLOR,URINE YELLOW (YELLOW); LEUKOCYTE ESTERASE ,URINE NEGATIVE (NEGATIVE); NITRITE, URINE NEGATIVE (NEGATIVE); UGLUCOSE NEGATIVE (NEGATIVE)
[2018-07-02 17:51] LABS: BARBITURATE, URINE NEG. ng/ml (NEG <=200); BENZODIAZEPINE, URINE NEG. ng/mL (NEG <=200); CANNABINOID, URINE NEG. ng/mL (NEG <=50); COCAINE, URINE NEG. ng/mL (NEG <=300); OPIATE, URINE NEG. ng/mL (NEG <=2000); PHENCYCLIDINE SCREEN,URINE NEG. ng/mL (NEG <=25)
[2018-07-02 18:03] LABS: RBC,URINE 11-20 (MOD) /HPF (0-5); WBC,URINE 0-5 /HPF (0-5)
--- NOTE | 2018-07-02 18:35 | NUR ---
RECEIVED BEDSIDE REPORT FROM ER NURSE. PT STABLE, AWAKE, ALERT AND ORIENTED X4. NO SIGNS OF DISTRESS NOTED. DENIES PAIN OR SOB. NO REDNESS, SWELLING, OR INFLAMMATION NOTED ON IV SITES. CALL SOMMER WITHIN REACH. BED IN LOWEST POSITION. SAFETY MEASURES IN PLACE. PLAN OF CARE REVIEWED.
--- NOTE | 2018-07-02 18:35 | NUR ---
Patient will be admitted to care of Dr. Fortune. Admited to Tele. Will go to room 105B. Belongings list completed. Report to Ann Marie Herrera RN.
--- NOTE | 2018-07-02 19:05 | NUR ---
ENDORSED PT TO RN SAGRARIO FOR CONTINUITY OF CARE. PT STABLE, AWAKE, AND ALERT.
--- NOTE | 2018-07-02 19:06 | NUR ---
RECEIVED REPORT FROM DAY SHIFT NURSE BESS DUNNE AT BEDSIDE. PT RESTING IN BED, AOX4, ON ROOM AIR WITH RIGHT FA #20G AND LEFT AC #20G- BOTH SL. USES WHEELCHAIR AT HOME. BANDAID FOUND ON RIGHT KNEE FROM ARTHROSCOPY 1 WEEK AGO AT [facility]. LEFT LOWER EXTREMITY +2 PITTING EDEMA, RIGHT LOWER EXTREMITY +3 PITTING EDEMA AND RED. DISCUSSED PLAN OF CARE AND PT VERBALIZED UNDERSTANDING. NO S/S OF RESPIRATORY DISTRESS OR DISCOMFORT NOTED AT THIS TIME. BED IN LOWEST POSITION, BED BREAKS ON, BOTH SIDE RAILS UP AND FALL PRECAUTIONS IN PLACE. BEDSIDE TABLE AND CALL LIGHT ARE WITHIN REACH. WILL CONTINUE TO MONITOR.
[2018-07-02] MEDS: ALBUTEROL 0.083% 2.5 MG/3 ML NEBU IH SCH (19:46)
[2018-07-02 20:00] VITALS: BP 145/96
--- NOTE | 2018-07-02 20:00 | NUR ---
VITAL SIGNS TAKEN AND TOLERATED WELL. BLOOD GLUCOSE 132- NO INSULIN COVERAGE NEEDED. NO S/S OF RESPIRATORY DISTRESS OR DISCOMFORT NOTED AT THIS TIME. WILL CONTINUE TO MONITOR.
[2018-07-02] MEDS: BLOOD GLUCOSE MONITORING 1 DEV DEV FS SCH (20:12)
[2018-07-02] MEDS: CARVEDILOL 6.25 MG TAB PO SCH (20:14)
[2018-07-02] MEDS: HYDROcodone/APAP 5/325 MG 1 TAB TAB PO PRN (20:14)
--- NOTE | 2018-07-02 20:14 | NUR ---
PT C/O RIGHT KNEE PAIN 11/03- NORCO GIVEN AND TOLERATED WELL. NO S/S OF RESPIRATORY DISTRESS OR DISCOMFORT NOTED AT THIS TIME. WILL CONTINUE TO MONITOR.
--- NOTE | 2018-07-02 20:16 | NUR ---
SCHEDULED MEDICATION GIVEN AND TOLERATED WELL. NO S/S OF RESPIRATORY DISTRESS OR DISCOMFORT NOTED AT THIS TIME. WILL CONTINUE TO MONITOR.
--- NOTE | 2018-07-02 22:00 | NUR ---
PT CONTINUES TO SLEEP IN BED. NO S/S OF RESPIRATORY DISTRESS OR DISCOMFORT NOTED AT THIS TIME. WILL CONTINUE TO MONITOR.
[2018-07-03] VITALS: BP 148/86
--- NOTE | 2018-07-03 | NUR ---
VITAL SIGNS TAKEN AND TOLERATED WELL. NO S/S OF RESPIRATORY DISTRESS OR DISCOMFORT NOTED AT THIS TIME. WILL CONTINUE TO MONITOR.
[2018-07-03] MEDS: ALBUTEROL 0.083% 2.5 MG/3 ML NEBU IH SCH ×4 (01:08→18:54)
--- NOTE | 2018-07-03 02:00 | NUR ---
PT CONTINUES TO SLEEP IN BED. NO S/S OF RESPIRATORY DISTRESS OR DISCOMFORT NOTED AT THIS TIME. WILL CONTINUE TO MONITOR.
[2018-07-03 04:00] VITALS: BP 159/94
--- NOTE | 2018-07-03 04:00 | NUR ---
VITAL SIGNS TAKEN AND TOLERATED WELL. PT C/O RIGHT KNEE PAIN 11/03- WILL MEDICATE WITH NORCO. NO S/S OF RESPIRATORY DISTRESS OR DISCOMFORT NOTED AT THIS TIME. WILL CONTINUE TO MONITOR.
[2018-07-03] MEDS: HYDROcodone/APAP 5/325 MG 1 TAB TAB PO PRN ×4 (04:35→20:23)
--- NOTE | 2018-07-03 04:35 | NUR ---
NORCO GIVEN FOR PAIN. PT TOLERATED WELL. NO S/S OF RESPIRATORY DISTRESS OR DISCOMFORT NOTED AT THIS TIME. WILL CONTINUE TO MONITOR.
--- NOTE | 2018-07-03 06:00 | NUR ---
BLOOD GLUCOSE 159- WILL ADMINISTER INSULIN COVERAGE. PT TOLERATED WELL. NO S/S OF RESPIRATORY DISTRESS OR DISCOMFORT NOTED AT THIS TIME. WILL CONTINUE TO MONITOR.
[2018-07-03] MEDS: BLOOD GLUCOSE MONITORING 1 DEV DEV FS SCH ×4 (06:39→20:23)
[2018-07-03] MEDS: INSULIN LISPRO SLIDING SCALE 100 UNITS/ML VIAL SUBQ PRN ×4 (06:42→20:29)
--- NOTE | 2018-07-03 06:42 | NUR ---
INSULIN COVERAGE GIVEN AND TOLERATED WELL. NO S/S OF RESPIRATORY DISTRESS OR DISCOMFORT NOTED AT THIS TIME. WILL CONTINUE TO MONITOR.
--- NOTE | 2018-07-03 07:12 | NUR ---
RECEIVED BEDSIDE REPORT FROM BESSIE ZABALA. PT STABLE, AWAKE, ALERT AND ORIENTED X4. NO SIGNS OF DISTRESS NOTED. DENIES PAIN OR SOB. ON 2L NC. NO REDNESS, SWELLING, OR INFLAMMATION NOTED ON IV SITE. CALL SOMMER WITHIN REACH. BED IN LOWEST POSITION. SAFETY MEASURES IN PLACE. PLAN OF CARE REVIEWED.
--- NOTE | 2018-07-03 07:13 | NUR ---
ENDORSED PT CARE TO DAY SHIFT NURSE BESS DUNNE FOR CONTINUITY OF CARE.
--- NOTE | 2018-07-03 07:14 | NUR ---
RECEIVED PATIENT ON 1L NASAL CANNULA, PULSE OX SAT 92%. SCHEDULED BREATHING TREATMENT ADMINISTERED. TOLERATED TX WELL, NO ADVERSE SIDE EFFECTS. NO RESPIRATORY DISTRESS NOTED. RETURNED PATIENT TO NASAL CANNULA. WILL CONTINUE TO MONITOR.
[2018-07-03 07:53] LABS: ALBUMIN 2.1 g/dL (3.4-5.0); ANION GAP 11.2 (8-16); CARBON DIOXIDE 27.1 mmol/L (21-32); CREATININE 0.9 mg/dL (0.7-1.3); POTASSIUM 3.3 mmol/L (3.5-5.1); TOTAL BILIRUBIN 0.3 mg/dL (0.0-1.0)
[2018-07-03 08:00] VITALS: BP 139/79
[2018-07-03 08:13] LABS: BASOPHILS # (AUTO) 0.1 K/uL (0.00-0.22); BASOPHILS % (AUTO) 0.8 % (0.0-2.0); EOSINOPHILS # (AUTO) 0.8 K/uL (0-0.4); HEMATOCRIT 26.9 % (36-52); HEMOGLOBIN 8.7 g/dL (12.0-18.0); LYMPHOCYTES # (AUTO) 1.3 K/uL (2.0-11.5); LYMPHOCYTES % (AUTO) 11.6 % (20.5-51.1); MEAN CORPUSCULAR HEMOGLOBIN 29 pg (27-31); MEAN CORPUSCULAR HGB CONC 32 g/dL (33-37); MEAN CORPUSCULAR VOLUME 90.9 fL (80-94); MONOCYTES # (AUTO) 0.9 K/uL (0.8-1.0); MONOCYTES % (AUTO) 8.1 % (1.7-9.3); NEUTROPHILS # (AUTO) 8.1 K/uL (1.8-7.7); NEUTROPHILS % (AUTO) 72.5 % (42.2-75.2); RED BLOOD CELL COUNT(AUTO) 2.96 MIL/uL (4.20-6.10); RED CELL DISTRIBUTION WIDTH 16.5 % (11.6-13.7); WHITE BLOOD COUNT (AUTO) 11.2 K/uL (4.8-10.8)
[2018-07-03 08:18] LABS: PLATELET COUNT (AUTO) 842 K/uL (140-450)
--- NOTE | 2018-07-03 08:18 | NUR ---
RECEIVED VERBAL ORDERS FROM DR SCHAEFFER FOR NICOTINE PATCH 21MG, MAGRIDER 2G IV, AND POTASSIUM CHLORIDE PO 40MEQ. WILL PUT IN ORDER.
[2018-07-03] MEDS ORDERED: NON-FORMULARY ITEM (Atorvastatin Calcium 40 MG) PO SCH (09:00)
[2018-07-03] MEDS ORDERED: NON-FORMULARY ITEM (Lisinopril 1 TAB) PO SCH (09:00)
[2018-07-03] MEDS: LISINOPRIL 10 MG TAB PO SCH (09:35)
[2018-07-03] MEDS: ASPIRIN 81 MG TAB.CHEW PO SCH (09:35)
[2018-07-03] MEDS: CARVEDILOL 6.25 MG TAB PO SCH ×2 (09:36→20:23)
[2018-07-03] MEDS: ATORVASTATIN 20 MG TAB PO SCH (09:40)
[2018-07-03] MEDS: FUROSEMIDE 40 MG/4 ML VIAL IVP SCH ×2 (09:40→16:41)
--- NOTE | 2018-07-03 09:50 | NUR ---
ADMINISTERED SCHEDULED MEDICATIONS. PT TOLERATED WELL. PRN NORCO ADMINISTERED FOR 7/10 RIGHT LEG PAIN.
[2018-07-03] MEDS ORDERED: POTASSIUM CHLORIDE 10 MEQ TABER PO SCH (10:00)
[2018-07-03] MEDS ORDERED: MAG SULF 2000 MG/WATER PREMIX 50 ML IV SCH (10:00)
--- NOTE | 2018-07-03 10:10 | NUR ---
PATIENT HAS BEEN SCREENED AND CATEGORIZED MODERATE NUTRITION RISK. PATIENT WILL BE SEEN WITHIN 3-5 DAYS OF ADMISSION. 07/04/18-07/06/[address]
--- NOTE | 2018-07-03 11:30 | NUR ---
VITAL SIGNS TAKEN, PT STABLE, AWAKE, AND ALERT. NO SIGNS OF DISTRESS NOTED. NO OTHER NEEDS AT THIS TIME.
[2018-07-03 12:00] VITALS: BP 139/90
[2018-07-03] MEDS ORDERED: NICOTINE TRANSD SYS 21 MG/24 HR PATCH TD SCH (12:00)
--- NOTE | 2018-07-03 13:00 | NUR ---
ADMINISTERED SCHEDULED MEDICATION AND POTASSIUM CHLORIDE PO PER MD ORDER. MAG-RIDER STARTED PER MD ORDER. PT TOLERATED WELL. NO OTHER NEEDS AT THIS TIME.
--- NOTE | 2018-07-03 13:34 | NUR ---
SCHEDULED BREATHING TREATMENT ADMINISTERED. TOLERATED WELL, NO ADVERSE SIDE EFFECTS. NO RESPIRATORY DISTRESS NOTED AT THIS TIME. PLACED BACK ON 1L NASAL CANNULA. WILL CONTINUE TO MONITOR.
[2018-07-03 15:54] LABS: MAGNESIUM 1.8 mg/dL (1.8-2.4); POTASSIUM 3.7 mmol/L (3.5-5.1)
[2018-07-03 16:00] VITALS: BP 149/94
--- NOTE | 2018-07-03 16:40 | NUR ---
ADMINISTERED SCHEDULED MEDICATION AND PRN NORCO FOR 7/10 RIGHT LEG PAIN. PT TOLERATED WELL. WILL CONTINUE TO MONITOR.
--- NOTE | 2018-07-03 17:34 | NUR ---
ADMINISTERED 2 UNITS OF HUMALOG FOR BG 161. PT TOLERATED WELL. NO OTHER NEEDS AT THIS TIME.
--- NOTE | 2018-07-03 19:15 | NUR ---
ENDORSED PT TO RN SAGRARIO FOR CONTINUITY OF CARE. PT STABLE, AWAKE, AND ALERT. FRIEND AT THE BEDSIDE.
--- NOTE | 2018-07-03 19:16 | NUR ---
RECEIVED REPORT FROM DAY SHIFT NURSE BESS GORE-BESSIE AT BEDSIDE. PT RESTING IN BED WITH FAMILY AT BEDSIDE, AOX4, ON ROOM AIR WITH RIGHT FA #20G AND LEFT AC #20G- BOTH SL. USES WHEELCHAIR AT HOME. BANDAID FOUND ON RIGHT KNEE FROM ARTHROSCOPY 1 WEEK AGO AT [facility]. LEFT LOWER EXTREMITY +2 PITTING EDEMA, RIGHT LOWER EXTREMITY +3 PITTING EDEMA AND RED. DISCUSSED PLAN OF CARE AND PT VERBALIZED UNDERSTANDING. NO S/S OF RESPIRATORY DISTRESS OR DISCOMFORT NOTED AT THIS TIME. BED IN LOWEST POSITION, BED BREAKS ON, BOTH SIDE RAILS UP AND FALL PRECAUTIONS IN PLACE. BEDSIDE TABLE AND CALL LIGHT ARE WITHIN REACH. WILL CONTINUE TO MONITOR.
[2018-07-03 20:00] VITALS: BP 155/92
--- NOTE | 2018-07-03 20:00 | NUR ---
BLOOD GLUCOSE 156- WILL GIVEN INSULIN COVERAGE. PT ALSO C/O RIGHT KNEE PAIN 11/03- WILL ADMINISTER PAIN MEDICATION. NO S/S OF RESPIRATORY DISTRESS OR DISCOMFORT NOTED AT THIS TIME. WILL CONTINUE TO MONITOR.
--- NOTE | 2018-07-03 20:00 | NUR ---
VITAL SIGNS TAKEN AND TOLERATED WELL. NO S/S OF RESPIRATORY DISTRESS OR DISCOMFORT NOTED AT THIS TIME. WILL CONTINUE TO MONITOR.
--- NOTE | 2018-07-03 20:29 | NUR ---
SCHEDULED MEDICATION GIVEN, NORCO GIVEN FOR PAIN AND INSULIN COVERAGE GIVEN. PT TOLERATED WELL. PT LAYING IN BED EMOTIONAL MISSING PET DOGS LEFT AT HOME WANTING TO GO HOME. I EDUCATED PT ON WHY HE WAS ADMITTED TO THE HOSPITAL. PT AGREED TO STAY IN THE HOSPITAL BUT REQUESTING A SLEEPING AID. TOLD PT I WOULD CALL DR. SCHAEFFER FOR AN ORDER. NO S/S OF RESPIRATORY DISTRESS OR DISCOMFORT NOTED AT THIS TIME. WILL CONTINUE TO MONITOR.
--- NOTE | 2018-07-03 21:15 | NUR ---
RECEIVED CALL BACK FROM DR. DENISE NAVA ON-CALL FOR DR. SCHAEFFER. ORDERED AMBIEN 5MG HS FOR INSOMNIA.
[2018-07-03] MEDS ORDERED: ZOLPIDEM 5 MG TAB PO PRN (21:20)
--- NOTE | 2018-07-03 21:38 | NUR ---
AMBIEN GIVEN FOR INSOMNIA. PT TOLERATED WELL. PT RESTING IN BED ENTERTAINED BY HIS CELLPHONE. NO S/S OF RESPIRATORY DISTRESS OR DISCOMFORT NOTED AT THIS TIME. WILL CONTINUE TO MONITOR.
--- NOTE | 2018-07-03 22:40 | NUR ---
DR. PHELPS IN TO SEE PT.
[2018-07-04] VITALS: BP 154/85
--- NOTE | 2018-07-04 | NUR ---
VITAL SIGNS TAKEN AND TOLERATED WELL. NO S/S OF RESPIRATORY DISTRESS OR DISCOMFORT NOTED AT THIS TIME. WILL CONTINUE TO MONITOR.
[2018-07-04] MEDS: HYDROcodone/APAP 5/325 MG 1 TAB TAB PO PRN ×3 (00:18→09:09)
--- NOTE | 2018-07-04 00:18 | NUR ---
PT REQUESTING EITHER ANOTHER SLEEPING PILL OR PAIN MEDICATION. SPOKE WITH PT THAT I GAVE HIM A SLEEPING PILL <3 HOURS AGO AND CANNOT GIVE HIM ANOTHER PILL. PT THEN STATED HE WANTED A PAIN PILL BECAUSE HE WAS IN PAIN 11/03. ADMINISTERED NORCO FOR PAIN. PT TOLERATED WELL. NO S/S OF RESPIRATORY DISTRESS OR DISCOMFORT NOTED AT THIS TIME. WILL CONTINUE TO MONITOR.
[2018-07-04] MEDS: ALBUTEROL 0.083% 2.5 MG/3 ML NEBU IH SCH ×2 (00:30→08:19)
--- NOTE | 2018-07-04 02:00 | NUR ---
PT SLEEPING IN BED. NO S/S OF RESPIRATORY DISTRESS OR DISCOMFORT NOTED AT THIS TIME. WILL CONTINUE TO MONITOR.
[2018-07-04 04:00] VITALS: BP 151/86
--- NOTE | 2018-07-04 04:00 | NUR ---
VITAL SIGNS TAKEN AND TOLERATED WELL. NO S/S OF RESPIRATORY DISTRESS OR DISCOMFORT NOTED AT THIS TIME. WILL CONTINUE TO MONITOR.
--- NOTE | 2018-07-04 06:00 | NUR ---
BLOOD GLUCOSE 166- WILL ADMINISTER INSULIN COVERAGE.
[2018-07-04] MEDS: BLOOD GLUCOSE MONITORING 1 DEV DEV FS SCH (06:47)
[2018-07-04] MEDS: INSULIN LISPRO SLIDING SCALE 100 UNITS/ML VIAL SUBQ PRN (06:49)
--- NOTE | 2018-07-04 06:49 | NUR ---
INSULIN COVERAGE GIVEN AND TOLERATED WELL. NO S/S OF RESPIRATORY DISTRESS OR DISCOMFORT NOTED AT THIS TIME. WILL CONTINUE TO MONITOR.
--- NOTE | 2018-07-04 07:29 | NUR ---
ENDORSED PT CARE TO DAY SHIFT NURSE JONATHAN FOR CONTINUITY OF CARE.
--- NOTE | 2018-07-04 07:30 | NUR ---
RECEIVED REPORT FROM DIRECTOR BEHAVIORAL HEALTH NURSE FOR CONTINUITY OF CARE. PT IN STABLE CONDITION. RESPIRATIONS EVEN AND UNLABORED. IV INTACT AND PATENT. O2 2L NC PATENT. SAFETY MEASURES IN PLACE. BED IN LOW POSITION, CALL LIGHT AT BEDSIDE, BED ALARM ON. WILL CONTINUE TO MONITOR.
[2018-07-04 08:00] VITALS: BP 170/91
[2018-07-04 08:10] LABS: BASOPHILS # (AUTO) 0.1 K/uL (0.00-0.22); BASOPHILS % (AUTO) 1.3 % (0.0-2.0); EOSINOPHILS % (AUTO) 8.4 % (0.0-4.0); HEMOGLOBIN 8.9 g/dL (12.0-18.0); LYMPHOCYTES # (AUTO) 1.7 K/uL (2.0-11.5); LYMPHOCYTES % (AUTO) 14.8 % (20.5-51.1); MEAN CORPUSCULAR HEMOGLOBIN 30 pg (27-31); MEAN CORPUSCULAR HGB CONC 33 g/dL (33-37); MEAN CORPUSCULAR VOLUME 90.3 fL (80-94); MONOCYTES # (AUTO) 0.9 K/uL (0.8-1.0); MONOCYTES % (AUTO) 7.5 % (1.7-9.3); NEUTROPHILS # (AUTO) 7.9 K/uL (1.8-7.7); RED BLOOD CELL COUNT(AUTO) 2.99 MIL/uL (4.20-6.10); RED CELL DISTRIBUTION WIDTH 16.7 % (11.6-13.7); WHITE BLOOD COUNT (AUTO) 11.5 K/uL (4.8-10.8)
[2018-07-04 08:17] LABS: PLATELET COUNT (AUTO) 796 K/uL (140-450)
--- NOTE | 2018-07-04 08:29 | NUR ---
RECEIVED PATIENT ON ROOM AIR, PULSE OX SAT 88%. PATIENT STATES TO HAVE TAKEN OXYGEN OFF. SCHEDULED BREATHING TREATMENT ADMINISTERED. TOLERATED TX WELL, NO ADVERSE SIDE EFFECTS. PLACED PATIENT ON OXYGEN, 2L NC. PULSE OX SAT 99%. NO RESPIRATORY DISTRESS NOTED. PATIENT DENIES SOB. WILL CONTINUE TO MONITOR.
[2018-07-04 08:44] LABS: ALBUMIN 2.1 g/dL (3.4-5.0); ANION GAP 10.1 (8-16); CARBON DIOXIDE 29.1 mmol/L (21-32); POTASSIUM 3.2 mmol/L (3.5-5.1); TOTAL BILIRUBIN 0.3 mg/dL (0.0-1.0)
[2018-07-04] MEDS: ASPIRIN 81 MG TAB.CHEW PO SCH (09:08)
[2018-07-04] MEDS: CARVEDILOL 6.25 MG TAB PO SCH (09:08)
[2018-07-04] MEDS: ATORVASTATIN 20 MG TAB PO SCH (09:08)
[2018-07-04] MEDS: FUROSEMIDE 40 MG/4 ML VIAL IVP SCH (09:09)
[2018-07-04] MEDS: LISINOPRIL 10 MG TAB PO SCH (09:09)
--- NOTE | 2018-07-04 09:10 | NUR ---
GAVE ORDERED DUE MEDICATIONS PT TOLERATED WELL. WILL CONTINUE TO MONITOR.
[2018-07-04] MEDS ORDERED: FURO-570 PO (11:06)
[2018-07-04] MEDS ORDERED: POTA10TA34 PO (11:06)
--- NOTE | 2018-07-04 12:30 | NUR ---
GAVE DISCHARGE INSTRUCTIONS AND PRESCRIPTION MEDICATION TO TAKE TO HOME PHARMACY, PT VERBALIZED UNDERSTANDING OF INSTRUCTIONS. IV REMOVED LUMEN INTACT. ID BAND REMOVED. PT WHEELED TO LOBBY IN WHEELCHAIR IN STABLE CONDITION WHERE FRIEND WAS WAITING WITH VEHICLE.
--- NOTE | 2018-07-05 15:12 | NUR ---
Called patient and informed him of his follow up appointment [facility] PCP Dr. Lele Perdue on 07/09/18 at 1400. Address: [address] [place] [id number] with verbal understanding.
--- NOTE | 2018-07-05 15:29 | NUR ---
Dr. [facility] requested H&P, labs and faxed to them .
== END 2018-07-04 12:30 | disposition home or self-care (01) | DRG 194 ==
LOC: MED 12:02 → MTU 16:28
PROVIDERS: ADMIT Hospitalist; ATTEND Hospitalist
DX: I11.0 Hypertensive heart disease with heart failure (principal); E11.51 Type 2 diabetes mellitus with diabetic peripheral angiopathy without gangrene; E44.1 Mild protein-calorie malnutrition; E78.00 Pure hypercholesterolemia, unspecified; E11.9 Type 2 diabetes mellitus without complications; D47.3 Essential (hemorrhagic) thrombocythemia; J44.9 Chronic obstructive pulmonary disease, unspecified; I50.43 Acute on chronic combined systolic (congestive) and diastolic (congestive) heart failure; Z86.73 Personal history of transient ischemic attack (TIA), and cerebral infarction without residual deficits; Z86.19 Personal history of other infectious and parasitic diseases
CPT/HCPCS: 36415; 36600; 71045; 71275; 73590; 80053; 80305; 81001; 82009; 82550; 82553; 82803; 82948; 83605; 83735; 83874; 83880; 84132; 84484; 84550; 85025; 85379; 85610; 85730; 86140; 87040; 87081; 87086; 93971; 94640; 96361; 96374; 96375; 99285; G0482; J1644; J1815; J1940; J2270; J2405; J3475; J7030; J7613; Q0092; Q9967

== ENCOUNTER 2020-06-26 14:07 | Emergency (ER) | payer OTHER ==
[~2020-06-26] VITALS: Ht 180.3 cm; Wt 113.4 kg
[~2020-06-26 14:07] MED LIST changes: +FURO-570 PO; -LISI10TA11 PO; +LISI10TA30 PO; +POTA10TA34 PO
[2020-06-26 14:12] VITALS: BP 137/88
[2020-06-26 14:59] VITALS: BP 134/84
== END 2020-06-26 15:00 | disposition home or self-care (01) ==
LOC: MED 14:07
DX: R22.1 Localized swelling, mass and lump, neck (principal); I10 Essential (primary) hypertension; F17.200 Nicotine dependence, unspecified, uncomplicated; Z71.6 Tobacco abuse counseling
CPT/HCPCS: 99281

== ENCOUNTER 2021-01-09 11:32 | Emergency (ER) | payer OTHER ==
[~2021-01-09] VITALS: Ht 180.3 cm; Wt 75.7 kg
[~2021-01-09 11:32] MED LIST changes: -POTA10TA34 PO; +POTA10TA74 PO
[2021-01-09 11:37] VITALS: BP 84/63
--- NOTE | 2021-01-09 11:49 | NUR ---
Note undone in EDM - 01/09/21 at 1202 by [email or web address] Pt presents to ED for GT clog. Per pt his last feeding was 12am via gravity. Pt was dx with throat cancer x6 months ago. Pt received radiation and is going to undergo chemotherapy in 2 months. Pt denies any pain, 0/10. Abdomen is flat and nontender. Pt is NPO.
[2021-01-09] MEDS ORDERED: BLOOD GLUCOSE MONITORING 1 DEV DEV FS STA (11:53)
--- NOTE | 2021-01-09 11:55 | NUR ---
Pt presents to ED for GT clog. Per pt his last feeding was 12am via gravity. Pt was dx with throat cancer x6 months ago. Pt received radiation and is going to undergo chemotherapy in 2 months. Pt denies any pain, 0/10. Abdomen is flat and nontender. Pt is NPO. Pt VSS. Pt BP 115/79. made aware.
--- NOTE | 2021-01-09 12:10 | NUR ---
Attmepted to flush GT, some residuals were noted, but unable to flush. MD Ho made aware.
--- NOTE | 2021-01-09 12:11 | NUR ---
Phleb at bedside
--- NOTE | 2021-01-09 13:16 | NUR ---
DR. RIVERS UNABLE TO PLACE G-TUBE IN PLACE AND REQUESTED العلي TO BE PLACED INTO G-TUBE SITE TO KEEP HOLE OPEN. STRAIGHT CATH العلي USED AND PLACED INTO G-TUBE SITE
[2021-01-09] MEDS ORDERED: fentaNYL citrate 0.05 MG/ML VIAL IM ONE (13:20)
--- NOTE | 2021-01-09 13:22 | NUR ---
Called Batting Machine Operator Tomasa and [place] LA in GI lab and there are no g-tubes smaller than 16 Fr available in house. Dr. Ho made aware.
--- NOTE | 2021-01-09 13:30 | NUR ---
MD Ho able to replace pt GT
[2021-01-09 13:41] LABS: PROTHROMBIN TIME 11.5 secs (10.8-13.4)
--- NOTE | 2021-01-09 13:59 | NUR ---
Contrast instilled in GT. X-ray at bedside
[2021-01-09 14:38] VITALS: BP 112/79
--- NOTE | 2021-01-09 14:38 | NUR ---
Patient discharged with v/s stable. Written and verbal after care instructions given and explained. Patient verbalized understanding. Ambulatory with steady gait. All questions addressed prior to discharge. Advised to follow up with PMD.
== END 2021-01-09 14:38 | disposition home or self-care (01) ==
LOC: MED 11:32
DX: K94.23 Gastrostomy malfunction (principal); E11.9 Type 2 diabetes mellitus without complications; Z86.73 Personal history of transient ischemic attack (TIA), and cerebral infarction without residual deficits; I11.9 Hypertensive heart disease without heart failure
CPT/HCPCS: 36415; 43762; 74240; 85610; 85730; 99284; Q0092; 43760; J3010

== ENCOUNTER 2021-03-16 06:20 | Inpatient (IN) | payer OTHER, SELFPAY ==
[~2021-03-16] VITALS: Ht 182.9 cm; Wt 59.0 kg
[2021-03-16 06:20] VITALS: BP 73/56
[2021-03-16] MEDS ORDERED: NACL 0.9% 1,000 ML IV ONE ×2 (06:25→06:35)
--- NOTE | 2021-03-16 06:30 | NUR ---
PATIENT BIB AMBULANCE, PER PARAMEDICS, FAMILY STATED PATIENT HAD ALOC FOR 30 MINUTES, BUT PATIENT STATED HE FELT DIZZY AND NO OTHER SYMPTOMS. PATIENT PRESENTED TACHYCARDIC HR 160, EDMD ORDERED NS BOLUS [address] TUBE IN PLACE. QUE DONE AT BEDSIDE. IV SITE PRESENT, LEFT FOREARM 22 GAUGE. PMH: DM, CANCER OF NECK, HTN, CVA 2 YEARS AGO.
--- NOTE | 2021-03-16 06:40 | NUR ---
CALLED [facility] TO FILE A REPORT D/T PT HYGIENE. EMS ADV THAT HOME IS DIRTY AND NOT A STABLE ENVIRONMENT FOR HEALING. SPOKE WITH SHOSHANA GUERRA AT [facility]. REPORT NUMBER IS [id number]. [facility] PHONE NUMBER IS [phone].
--- NOTE | 2021-03-16 07:14 | NUR ---
LAB AT BEDSIDE
--- NOTE | 2021-03-16 07:18 | NUR ---
XRAY AT BEDSIDE
--- NOTE | 2021-03-16 07:20 | NUR ---
REPORT RECEIVED FROM JENNIFER LA FOR CONTINUITY OF CARE. PT AWAKE, OPENS EYES, ON ROOM AIR. IV SITE LT AC 22G, INFUSING NS BOLUS. GTUBE IN PLACE. WILL CONTINUE TO MONITOR.
--- NOTE | 2021-03-16 07:20 | NUR ---
REPORT GIVEN TO DAY SHIFT ED NURSE ROMINA JURADO CARE.
--- NOTE | 2021-03-16 08:00 | NUR ---
# 16 FR Urinary catheter inserted utilizing sterile technique. No return of urine at this time. CHRISSYD made aware.
[2021-03-16 08:11] LABS: PROTHROMBIN TIME 10.6 secs (10.8-13.4)
[2021-03-16 08:12] LABS: ALBUMIN 2.3 g/dL (3.4-5.0); ANION GAP 13.2 (8-16); CARBON DIOXIDE 31.7 mmol/L (21-32); CREATININE 1.6 mg/dL (0.6-1.3); POTASSIUM 3.9 mmol/L (3.5-5.1); TOTAL BILIRUBIN 0.8 mg/dL (0.0-1.0)
--- NOTE | 2021-03-16 08:23 | NUR ---
RECTAL TEMP 95.4, PT PLACED ON BEAR HUGGER
--- NOTE | 2021-03-16 08:33 | NUR ---
STEPHANIE SWAB COLLECTED AND SENT TO LAB, WITH MARYLOU KAISER
[2021-03-16] MEDS ORDERED: CEFEPIME 1,000 MG in DEXTROSE 5% 50 ML IV ONE (08:45)
[2021-03-16] MEDS ORDERED: VANCOMYCIN HCL 750 MG in DEXTROSE 5% 250 ML IV SCH (08:45)
[2021-03-16 08:47] LABS: BASOPHILS % (AUTO) 0.1 % (0.0-2.0); EOSINOPHILS # (AUTO) 0.1 K/uL (0-0.4); EOSINOPHILS % (AUTO) 0.5 % (0.0-4.0); HEMATOCRIT 40.1 % (36-52); HEMOGLOBIN 13.8 g/dL (12.0-18.0); LYMPHOCYTES # (AUTO) 0.2 K/uL (2.0-11.5); LYMPHOCYTES % (AUTO) 1.7 % (20.5-51.1); MEAN CORPUSCULAR HEMOGLOBIN 33 pg (27-31); MEAN CORPUSCULAR HGB CONC 34 g/dL (33-37); MEAN CORPUSCULAR VOLUME 95.8 fL (80-94); MONOCYTES # (AUTO) 0.6 K/uL (0.8-1.0); MONOCYTES % (AUTO) 4.8 % (1.7-9.3); NEUTROPHILS # (AUTO) 11.1 K/uL (1.8-7.7); NEUTROPHILS % (AUTO) 92.9 % (42.2-75.2); PLATELET COUNT (AUTO) 384 K/uL (140-450); RED BLOOD CELL COUNT(AUTO) 4.19 MIL/uL (4.20-6.10); RED CELL DISTRIBUTION WIDTH 16.9 % (11.6-13.7); WHITE BLOOD COUNT (AUTO) 11.9 K/uL (4.8-10.8)
[2021-03-16] MEDS ORDERED: CEFEPIME 1,000 MG VIAL ONE (08:50)
--- NOTE | 2021-03-16 10:35 | NUR ---
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
[2021-03-16] MEDS ORDERED: ACETAMINOPHEN 325 MG TAB PO PRN (11:05)
[2021-03-16] MEDS ORDERED: ONDANSETRON 4 MG/2 ML VIAL IVP PRN (11:05)
[2021-03-16] MEDS ORDERED: INSULIN LISPRO SLIDING SCALE 100 UNITS/ML VIAL SUBQ PRN (11:10)
[2021-03-16] MEDS ORDERED: DEXTROSE 50% 50 ML SYR IVP PRN (11:10)
[2021-03-16] MEDS: BLOOD GLUCOSE MONITORING 1 DEV DEV FS SCH ×3 (11:30→21:00)
[2021-03-16] MEDS ORDERED: cefTRIAXone 1,000 MG VIAL ONE (11:39)
[2021-03-16] MEDS: NACL 0.9% 1,000 ML IV SCH ×2 (11:44→19:28)
[2021-03-16 11:58] LABS: CREATINE KINASE MB 2.3 ng/mL (0-3.6)
--- NOTE | 2021-03-16 13:00 | NUR ---
LAB AT BEDSIDE
--- NOTE | 2021-03-16 13:33 | NUR ---
PT PROVIDED WITH LUNCH TRAY, EATING AT THIS TIME
--- NOTE | 2021-03-16 16:10 | NUR ---
Patient will be admitted to care of DR ZIMMERMAN. Admited to TELEMETRY. Will go to room 122 A. Belongings list completed. Report to LAXMI LA.
[2021-03-16 16:16] VITALS: BP 127/86
--- NOTE | 2021-03-16 17:06 | NUR ---
MD CALLED DUE TO PATIENT HIGH HEART RATE.
--- NOTE | 2021-03-16 17:12 | NUR ---
RAPID RESPONSE CALLED DUE TO LOW BP AND ELEVATED HR. BLOOD SUGAR WAS 80. PATIENT ALERT AND AWAKE. 02 SAT AT 100%.
--- NOTE | 2021-03-16 17:27 | NUR ---
DR ZIMMERMAN CALLED BACK AND INFORMED ABOUT RAPID RESPONSE. MD ORDERED DOUBLE BOLUS. VS 90/65, 74, 2 SAT AT 98% ON ROOM AIR.
[2021-03-16] MEDS ORDERED: NACL 0.9% 2,000 ML IV ONE (17:35)
--- NOTE | 2021-03-16 18:06 | NUR ---
CURRENT VITAL SIGNS: 122/86, 77, 18, 100% 02 ON ROOM AIR. NO SIGNS OF DISTRESS NOTED. WILL CONTINUE TO MONITOR.
--- NOTE | 2021-03-16 19:05 | NUR ---
ENDORSED PATIENT TO CHIEF LIBRARIAN BRANCH OR DEPARTMENT NURSE FOR CONTINUITY OF CARE. PATIENT STABLE.
[2021-03-16 20:00] VITALS: BP 124/81
--- NOTE | 2021-03-16 20:40 | NUR ---
Assumed care. He is sleeping at this time. Vital signs are stable. In no acute distress. Will be turning him every 2 hours. Has IV fluids infusing at 125ml/hr. Will continue to monitor.
--- NOTE | 2021-03-16 22:55 | NUR ---
Blood glucose is 66. It is within acceptable limits , but it is bound to go down, because pt refused to eat his dinner. We are going to offer him something to drink now that he prefers to drink. We need to maintain, manage his blood glucose. The drinks have been offered. Will continue to monitor.
[2021-03-17] VITALS: BP 101/74
[2021-03-17] MEDS: NACL 0.9% 1,000 ML IV SCH ×3 (02:51→22:45)
[2021-03-17 04:00] VITALS: BP 105/76
[2021-03-17 05:31] LABS: BASOPHILS % (AUTO) 0.4 % (0.0-2.0); EOSINOPHILS % (AUTO) 2.1 % (0.0-4.0); HEMATOCRIT 37.5 % (36-52); HEMOGLOBIN 12.9 g/dL (12.0-18.0); LYMPHOCYTES # (AUTO) 0.2 K/uL (2.0-11.5); MEAN CORPUSCULAR HEMOGLOBIN 33 pg (27-31); MEAN CORPUSCULAR HGB CONC 34 g/dL (33-37); NEUTROPHILS # (AUTO) 4.9 K/uL (1.8-7.7); PLATELET COUNT (AUTO) 393 K/uL (140-450); RED BLOOD CELL COUNT(AUTO) 3.95 MIL/uL (4.20-6.10); RED CELL DISTRIBUTION WIDTH 16.6 % (11.6-13.7); WHITE BLOOD COUNT (AUTO) 5.6 K/uL (4.8-10.8)
[2021-03-17 05:32] LABS: EOSINOPHILS # (AUTO) 0.1 K/uL (0-0.4); MONOCYTES # (AUTO) 0.3 K/uL (0.8-1.0)
[2021-03-17 05:41] LABS: ALBUMIN 1.9 g/dL (3.4-5.0); ANION GAP 12.9 (8-16); CARBON DIOXIDE 26.7 mmol/L (21-32); MAGNESIUM 1.4 mg/dL (1.8-2.4); TOTAL BILIRUBIN 0.5 mg/dL (0.0-1.0)
[2021-03-17 06:19] LABS: POTASSIUM 2.6 mmol/L (3.5-5.1)
--- NOTE | 2021-03-17 06:33 | NUR ---
He has had several SVTs. Has critical K = 2.6. Dr. Crain has been contacted and notified. Received new orders. KCL 40 MEQ IV with Lidocaine piggyback, and KCL 40 MEQ via G tube.
[2021-03-17] MEDS ORDERED: POTASSIUM CHLORIDE 20% 40 MEQ/15 ML UDC GT SCH (06:35)
[2021-03-17] MEDS ORDERED: COMMUNICATION ORDER MC ONE (06:40)
[2021-03-17 06:56] LABS: LYMPHOCYTES % (AUTO) 4.2 % (20.5-51.1); NEUTROPHILS % (AUTO) 87.3 % (42.2-75.2)
[2021-03-17] MEDS: BLOOD GLUCOSE MONITORING 1 DEV DEV FS SCH ×4 (07:04→21:00)
[2021-03-17] MEDS ORDERED: POTASSIUM CHLORIDE 40 MEQ, LIDOCAINE MPF 1% 25 MG in NACL 0.9% 250 ML IV ONE (07:25)
--- NOTE | 2021-03-17 07:30 | NUR ---
RECEIVED PT BEDSIDE REPORT FROM DIVISIONAL MERCHANDISING MANAGER NURSE. PT IS RESTING. NS RUNNING AT 125. IV IS 22G ON L AC INTACT AND PATENT. SKIN INTACT. PT BREATHING IS UNLABORED AND EVEN. NO S/S OF DISTRESS. PT IS STABLE.
[2021-03-17 08:00] VITALS: BP 126/79
[2021-03-17] MEDS ORDERED: MAG SULF 2000 MG/WATER PREMIX 50 ML IV SCH (08:00)
[2021-03-17] MEDS ORDERED: POTASSIUM CHLORIDE 10 MEQ TABER PO SCH (08:00)
--- NOTE | 2021-03-17 08:00 | NUR ---
PT POTASSIUM IS 2.6. PER MD ORDER WILL COVER WITH POTASSIUM IN IV AND PO. MG IS 1.4 WILL COVER WITH MG IV PER MD ORDER. VS WNL. PT IS STABLE.
[2021-03-17] MEDS ORDERED: ENOXAPARIN 40 MG/0.4 ML SYR SUBQ SCH (09:00)
[2021-03-17] MEDS: NICOTINE TRANSD SYS 21 MG/24 HR PATCH TD SCH (09:21)
[2021-03-17 11:20] LABS: CREATINE KINASE MB 1.3 ng/mL (0-3.6)
--- NOTE | 2021-03-17 11:30 | NUR ---
PT BLOOD SUGAR IS 99. NO COVERAGE NEEDED.
[2021-03-17 12:00] VITALS: BP 138/79
--- NOTE | 2021-03-17 13:30 | NUR ---
PT IS RESTING. PT BREATHING IS EVEN AND UNLABORED. NO S/S OF DISTRESS. PT IS STABLE.
[2021-03-17 16:00] VITALS: BP 130/90
--- NOTE | 2021-03-17 16:30 | NUR ---
PT BLOOD SUGAR IS 100. NO INSULIN NEEDED. PT IS STABLE.
--- NOTE | 2021-03-17 17:30 | NUR ---
LAB CALLED TO ASK FOR URINE SAMPLE. PT IS INCONTINENT. WILL TRY TO GET URINE SAMPLE OR ENDORSE TO PUBLISHING MANAGER TO ATTEMPT.
--- NOTE | 2021-03-17 19:15 | NUR ---
ENDORSED PT BEDSIDE TO HUMAN RESOURCES OPERATIONS SPECIALIST NURSE FOR CONTINUITY OF CARE. EXPLAINED POC. PT IS STABLE.
[2021-03-17 20:00] VITALS: BP 126/80
[2021-03-17 22:20] LABS: APPEARANCE,URINE CLEAR (CLEAR); BILIRUBIN,URINE NEGATIVE (NEGATIVE); BLOOD, URINE NEGATIVE (NEGATIVE); COLOR,URINE YELLOW (YELLOW); LEUKOCYTE ESTERASE ,URINE TRACE (NEGATIVE); NITRITE, URINE NEGATIVE (NEGATIVE); UGLUCOSE 1+ (NEGATIVE)
[2021-03-17 22:34] LABS: BARBITURATE, URINE NEGATIVE ng/ml (NEG <=200); BENZODIAZEPINE, URINE NEGATIVE ng/mL (NEG <=200); CANNABINOID, URINE POSITIVE ng/mL (NEG <=50); COCAINE, URINE NEGATIVE ng/mL (NEG <=300); OPIATE, URINE NEGATIVE ng/mL (NEG <=2000); PHENCYCLIDINE SCREEN,URINE NEGATIVE ng/mL (NEG <=25)
[2021-03-17 22:37] LABS: RBC,URINE 0-5 /HPF (0-5)
[2021-03-18] VITALS: BP 128/83
[2021-03-18 04:00] VITALS: BP 133/83
[2021-03-18] MEDS: NACL 0.9% 1,000 ML IV SCH ×3 (05:20→18:35)
[2021-03-18] MEDS: BLOOD GLUCOSE MONITORING 1 DEV DEV FS SCH ×4 (07:04→21:01)
--- NOTE | 2021-03-18 07:55 | NUR ---
WOUND CARE NOTE: WOUND ASSESSMENT DONE WITH THIS 60 Y/O PT. NO OPEN WOUND. MID BACK SUPERFICIAL SKIN TEAR POSSIBLE FROM PEELING SCABS 2X0.8CM SUPERFICIAL DEPTH . SACRALCOCCYX BLANCHABLE REDNESS, MOIST,MAD, SKIN INTACT.PT. WITH LOW CARLOS SCALE AT RISK, CONTINUE TO FOLLOW PRESSURE INJURY PREVENTION INTERVENTIONS. RECOMMENDATIONS: -CLEANSE SACRALCOCCYX AND SCROTUM WITH MILD SOAP AND WATER, PAT DRY, APPLY HYDRAGUARD BID AND PRN IF SOILING -APPLY FOAM DRESSING TO MID BACK QD AND PRN IF SOILING -TURN AND REPOSITION PATIENT Q 2H -ASSESS AND MONITOR SKIN CONDITION DURING POSITION CHANGE -OFFLOAD BILATERAL HEELS BY PLACING PILLOWS UNDER CALVES AT ALL TIMES, UNLESS OTHERWISE CONTRAINDICATED -PRESSURE REDISTRIBUTION SURFACE AND OFFLOADING SACRALCOCCYX -KEEP SKIN CLEAN AND DRY AT ALL TIMES. PLEASE NOTIFIED WOUND CARE NURSE FOR ANY CHANGE OF SKIN CONDITION
[2021-03-18 08:00] VITALS: BP 133/86
--- NOTE | 2021-03-18 08:04 | NUR ---
PATIENT RECEIVED FROM SENIOR BOILER OPERATOR NURSE. PT RESTING IN BED ALL SAFETY MEASURES ARE IN PLACE. CALL LIGHT WITHIN REACH , BED IN LOWEST POSITION. ALL BELONGINGS WITHIN REACH.
--- NOTE | 2021-03-18 08:34 | NUR ---
PATIENT HAS BEEN SCREENED AND CATEGORIZED HIGH NUTRITION RISK. PATIENT WILL BE SEEN WITHIN 1-2 DAYS OF ADMISSION. 03/18/21 CONSULT RECEIVED FOR WOUNDS AND PRESSURE INJURY; REFERRAL RECEIVED NOT APPLICABLE [address]AN [address]
[2021-03-18] MEDS: NICOTINE TRANSD SYS 21 MG/24 HR PATCH TD SCH (09:04)
[2021-03-18] MEDS: RIVAROXABAN 10 MG TAB PO SCH (09:08)
--- NOTE | 2021-03-18 09:10 | NUR ---
MEDICATIONS GIVEN PER MD ORDER. PATIENT EDUCATED AND VERBALIZED UNDERSTANDING ALL SAFETY MEASURES ARE IN PLACE.
--- NOTE | 2021-03-18 10:25 | NUR ---
PATIENT REFUSING BEDBATH AND TO BE CHANGED PATIENT EDUCATE DALL SAFETY MEASURES ARE IN PLACE.
--- NOTE | 2021-03-18 11:30 | NUR ---
BG 115
--- NOTE | 2021-03-18 11:38 | NUR ---
SPOKE TO JODY (POWER OF ROUTE PROCESS ADMINISTRATOR) . JODY UPDATED ON PLAN OF CARE. AND VERBALIZED UNDERSTANDING. PER JODY NO ONE SHOULD EB ABLE TO SPEAK TO PATIENT BUT HIMSELF. NO FRIENDS ALL SAFETY MEASURES ARE IN PLACE.
[2021-03-18] MEDS ORDERED: METOPROLOL 25 MG TAB PO SCH (11:55)
[2021-03-18 12:00] VITALS: BP 131/92
[2021-03-18 12:51] LABS: BASOPHILS % (AUTO) 0.4 % (0.0-2.0); EOSINOPHILS # (AUTO) 0.1 K/uL (0-0.4); EOSINOPHILS % (AUTO) 1.1 % (0.0-4.0); HEMATOCRIT 38.8 % (36-52); HEMOGLOBIN 13.2 g/dL (12.0-18.0); LYMPHOCYTES # (AUTO) 0.2 K/uL (2.0-11.5); LYMPHOCYTES % (AUTO) 3.4 % (20.5-51.1); MEAN CORPUSCULAR HEMOGLOBIN 33 pg (27-31); MEAN CORPUSCULAR HGB CONC 34 g/dL (33-37); MEAN CORPUSCULAR VOLUME 95.4 fL (80-94); MONOCYTES # (AUTO) 0.4 K/uL (0.8-1.0); MONOCYTES % (AUTO) 5.7 % (1.7-9.3); NEUTROPHILS # (AUTO) 6.5 K/uL (1.8-7.7); NEUTROPHILS % (AUTO) 89.4 % (42.2-75.2); PLATELET COUNT (AUTO) 387 K/uL (140-450); RED BLOOD CELL COUNT(AUTO) 4.06 MIL/uL (4.20-6.10); WHITE BLOOD COUNT (AUTO) 7.2 K/uL (4.8-10.8)
[2021-03-18] MEDS ORDERED: FOAM DRESSING TP SCH (13:00)
[2021-03-18 13:02] LABS: ANION GAP 12.7 (8-16); CARBON DIOXIDE 25.6 mmol/L (21-32); CREATININE 0.9 mg/dL (0.6-1.3); POTASSIUM 3.3 mmol/L (3.5-5.1)
--- NOTE | 2021-03-18 13:25 | NUR ---
PT RESTING IN BED NO S/SX OF DISTRESS AT THIS TIME . PT STATES HE WANTS TO GO HOME . ALL SAFETY MEASURES AR EIN PLACE.
[2021-03-18] MEDS: HYDRAGUARD CREAM TP SCH (13:28)
--- NOTE | 2021-03-18 13:55 | NUR ---
03/18/21 RD INITIAL ASSESSMENT COMPLETED PLEASE REFER TO NUTRITION ASSESSMENT UNDER CARE ACTIVITY FOR ESTIMATED NUTRITIONAL NEEDS. 1. CONTINUE CCHO 60 GM DIET TOLERATED 2. RECOMMEND GLUCERNA ORAL SUPPLEMENT TID TO INCREASE CALORIE/PROTEIN INTAKE -WILL PROVIDE EXTRA 660 KCAL AND [address] TO FOLLOW-UP 2-3 DAYS, HIGH RISK [address]AN [address]
--- NOTE | 2021-03-18 13:58 | NUR ---
PT AMBULATED WITH PT . PT UNSTEADY AND IMPULSIVE ALL SAFETY MEASURES ARE IN PLACE, PT REFUSES WALKER
[2021-03-18 16:00] VITALS: BP 142/90
--- NOTE | 2021-03-18 16:38 | NUR ---
BG 102 . NO ACTION AT THIS TIME PER MD ORDER. ALL SAFETY MEASURES ARE IN PLACE.
[2021-03-18] MEDS ORDERED: MAG SULF 2000 MG/WATER PREMIX 50 ML IV ONE (16:55)
--- NOTE | 2021-03-18 16:56 | NUR ---
PT ASSISTED WITH PHONE TO TALK TO FAMILY
[2021-03-18] MEDS ORDERED: POTASSIUM CHLORIDE 10 MEQ TABER PO SCH (17:15)
[2021-03-18] MEDS ORDERED: MAG SULF 2000 MG/WATER PREMIX 100 ML IV SCH (17:15)
--- NOTE | 2021-03-18 18:08 | NUR ---
PT RESTIN IN BED , ASSITED WITH MEAL TRAY SET UP ALL SAFETY MEASURES IN PLACE.
--- NOTE | 2021-03-18 18:55 | NUR ---
PT ROUNDED ON PT TOLERATING DINNER WELL DENIES N/V
--- NOTE | 2021-03-18 19:35 | NUR ---
Patient endorsed to retail shift leader nurse. Pt instable condition.
--- NOTE | 2021-03-18 19:36 | NUR ---
RECEIVED REPORT FROM AM NURSE. PATIENT IS AWAKE, RESTING CALMLY IN BED. NO SOB NOTED. BREATHING REGULAR UNLABORED. NO COMPLAINTS OF PAIN. IVF NS RUNNING AT 125 ML ON THE LEFT AC. ALL SAFETY MEASURES ARE IN PLACE. CALL LIGHT WITHIN REACH. WILL CONTINUE TO MONITOR.
[2021-03-18 20:00] VITALS: BP 120/77
[2021-03-18] MEDS: METOPROLOL 25 MG TAB PO SCH (21:03)
--- NOTE | 2021-03-18 21:03 | NUR ---
SCHEDULED MEDICATION GIVEN ORDERED. PT IS STABLE.
--- NOTE | 2021-03-18 22:30 | NUR ---
PATIENT IS KEPT CLEAN, DRY AND COMFORTABLE. NO ACUTE DISTRESS NOTED.
[2021-03-19] VITALS: BP 130/85
[2021-03-19] MEDS: HYDRAGUARD CREAM TP SCH ×2 (01:00→13:00)
--- NOTE | 2021-03-19 02:00 | NUR ---
ROUNDED PATIENT. PT IS SLEEPING. SAFETY MEASURES IN PLACE. CALL LIGHT WITHIN REACH.
[2021-03-19] MEDS: NACL 0.9% 1,000 ML IV SCH ×2 (03:05→11:22)
[2021-03-19 04:00] VITALS: BP 126/82
[2021-03-19 05:57] LABS: BASOPHILS % (AUTO) 0.2 % (0.0-2.0); EOSINOPHILS # (AUTO) 0.1 K/uL (0-0.4); EOSINOPHILS % (AUTO) 0.9 % (0.0-4.0); HEMATOCRIT 42.3 % (36-52); HEMOGLOBIN 14.3 g/dL (12.0-18.0); LYMPHOCYTES # (AUTO) 0.2 K/uL (2.0-11.5); LYMPHOCYTES % (AUTO) 1.5 % (20.5-51.1); MEAN CORPUSCULAR HEMOGLOBIN 32 pg (27-31); MEAN CORPUSCULAR HGB CONC 34 g/dL (33-37); MONOCYTES # (AUTO) 0.3 K/uL (0.8-1.0); MONOCYTES % (AUTO) 2.5 % (1.7-9.3); NEUTROPHILS # (AUTO) 11.7 K/uL (1.8-7.7); NEUTROPHILS % (AUTO) 94.9 % (42.2-75.2); PLATELET COUNT (AUTO) 417 K/uL (140-450); RED BLOOD CELL COUNT(AUTO) 4.45 MIL/uL (4.20-6.10); RED CELL DISTRIBUTION WIDTH 16.6 % (11.6-13.7); WHITE BLOOD COUNT (AUTO) 12.4 K/uL (4.8-10.8)
[2021-03-19 06:16] LABS: ANION GAP 11.8 (8-16); CARBON DIOXIDE 25.5 mmol/L (21-32); CREATININE 0.8 mg/dL (0.6-1.3); POTASSIUM 3.3 mmol/L (3.5-5.1)
[2021-03-19] MEDS: BLOOD GLUCOSE MONITORING 1 DEV DEV FS SCH ×3 (06:40→16:30)
--- NOTE | 2021-03-19 07:20 | NUR ---
ENDORSED TO AM NURSE FOR CONTINUITY OF CARE. PT IS STABLE.
--- NOTE | 2021-03-19 07:30 | NUR ---
RECEIVED PT AAOX4. NO SOB NOTED. NO C/O PAIN AT THIS TIME. IV TO LEFT AC PATENT AND INTACT. CHEST, DIMINISHED AIR ENTRY TO THE BASES. ABDOMEN SOFT, BOWEL SOUNDS PRESENT, WITH G-TUBE NOT IN USE, G-TUBE SITE CLEAN AND DRY. NO EDEMA NOTED. INSTRUCTED PT TO CALL FOR ASSISTANCE, CALL LIGHT WITHIN REACH, PT VERBALIZED UNDERSTANDING.
[2021-03-19 08:00] VITALS: BP 121/83
[2021-03-19] MEDS ORDERED: POTASSIUM CHLORIDE 20% 40 MEQ/15 ML UDC GT SCH (09:00)
[2021-03-19] MEDS: NICOTINE TRANSD SYS 21 MG/24 HR PATCH TD SCH (09:13)
[2021-03-19] MEDS: METOPROLOL 25 MG TAB PO SCH (09:14)
[2021-03-19] MEDS: RIVAROXABAN 10 MG TAB PO SCH (09:14)
--- NOTE | 2021-03-19 10:00 | NUR ---
ON GOING PHYSICAL THERAPY AT THE BEDSIDE. PER BRYAN-PT, PT WILL BENEFIT IN GOING TO SNF FOR PT
--- NOTE | 2021-03-19 11:00 | NUR ---
DR. PEDERSEN ON ROUNDS, SPOKE WITH PT REGARDING DISCHARGE PLANNING TO SNF. PT REFUSED, STATED WE ARE HOLDING HIM AGAINST HIS WILL. DR. PEDERSEN EXPLAINED TO PT BUT PT STILL INSISTING HE WANTS TO GO HOME NOW.
[2021-03-19 12:00] VITALS: BP 124/86
--- NOTE | 2021-03-19 12:00 | NUR ---
FOUND PT CHANGING TO HIS STREET CLOTHES (BOTTOM), STATED HE WANTS TO WALK HOME RIGHT NOW, STRIPPING HIS TELE MONITOR, GETTING UP IN BED AND VERY UNSTEADY. BILATERAL SOFT WRIST RESTRAINTS APPLIED ORDERED. WILL CONTINUE TO MONITOR PT.
[2021-03-19] MEDS ORDERED: LORazepam 2 MG/ML VIAL IM/IVP PRN (12:35)
--- NOTE | 2021-03-19 12:46 | NUR ---
PT STILL AGITATED, ATIVAN 0.5 MG IVP GIVEN ORDERED PRN.
--- NOTE | 2021-03-19 14:38 | NUR ---
PATIENT SLEEPING. NO ACUTE DISTRESS NOTED. BREATHING EVEN AND UNLABORED. PATIENT ON ROOM AIR. PATIENT HAS RESTRAINTS. NO INJURY NOTED TO SKIN. ALL SAFETY MEASURES IN PLACE. CALL LIGHT WITHIN REACH. WILL CONTINUE TO MONITOR.
[2021-03-19] MEDS ORDERED: XAR10 PO (16:45)
[2021-03-19] MEDS ORDERED: METO25TA PO (16:45)
[2021-03-19] MEDS ORDERED: NITR100C1 PO (16:45)
--- NOTE | 2021-03-19 16:55 | NUR ---
PATIENT AWAKE. NO ACUTE DISTRESS NOTED. PATIENT ON ROOM AIR. ALL SAFETY MEASURES IN PLACE. CALL LIGHT WITHIN REACH. WILL CONTINUE TO MONITOR.
--- NOTE | 2021-03-19 17:40 | NUR ---
PT ALERT ON STABLE CONDITION. GIVEN DISCHARGE INSTRUCTION WITH UNDERSTANDING. CLEANSED AND DRESSED BEFORE WHEELED TO [facility]. BROTHER RUSSEL PICK HIM UP. WRIST BAND AND IV REMOVED WITH IV CATHETER INTACT.
--- NOTE | 2021-03-22 10:44 | NUR ---
DC PLANNING: ORDERS TO RESUME PATIENTS HOME [facility] FOR PHYSICAL THERAPY RECEIVED. KRISTEL UNABLE TO REACH THE PATIENT, SPOKE WITH HIS BROTHER JOSEY BY PHONE WHO STATES THAT HIS BROTHER HAS NO BEEN ANSWERING HIS PHONE FOR THE LAST FEW DAYS. JOSEY WAS ABLE TO PROVIDE THE NAME OF THE PATIENTS HOME [facility] WHICH IS [facility] ([phone]), CM CONFIRMED WITH SONNY AT [facility] THAT THE PATIENT IS ACTIVELY ON SERVICE WITH THEM. CLINICAL PACKET FAXED TO THEM, REQUEST FOR AUTH FOR HOME HEALTH P.T. FAXED TO [facility]. KRISTEL WILL FOLLOW FOR NEEDS. Addendum: 03/22/21 at 1213 by Marissa Royal CM DC PLANNING: AUTH RECEIVED FROM [facility] PER ZACK FOR [facility], # [id number]. KRISTEL GAVE THE AUTH TO SONNY AT [facility], START OF SERVICE WILL BE THIS WEEKEND. KRISTEL ALSO SPOKE WITH THE PATIENTS BROTHER JOSEY AND ENDORSED ABOVE. CMM WILL FOLLOW NEEDED.
== END 2021-03-19 17:25 | disposition home health service (06) | DRG 720 ==
LOC: MED 06:20 → MTU 11:07
PROVIDERS: ADMIT Internal Medicine; ATTEND Internal Medicine
DX: A41.9 Sepsis, unspecified organism (principal); G93.41 Metabolic encephalopathy; E44.0 Moderate protein-calorie malnutrition; N17.9 Acute kidney failure, unspecified; N39.0 Urinary tract infection, site not specified; I50.22 Chronic systolic (congestive) heart failure; I48.92 Unspecified atrial flutter; E86.0 Dehydration; E87.6 Hypokalemia; I11.0 Hypertensive heart disease with heart failure; E11.9 Type 2 diabetes mellitus without complications; R65.20 Severe sepsis without septic shock; F17.200 Nicotine dependence, unspecified, uncomplicated; E83.42 Hypomagnesemia; E78.5 Hyperlipidemia, unspecified; Z20.822 Contact with and (suspected) exposure to COVID-19; Z93.1 Gastrostomy status; Z79.82 Long term (current) use of aspirin; Z79.899 Other long term (current) drug therapy; Z86.73 Personal history of transient ischemic attack (TIA), and cerebral infarction without residual deficits; Z85.89 Personal history of malignant neoplasm of other organs and systems; Z71.6 Tobacco abuse counseling; Z68.1 Body mass index [BMI] 19.9 or less, adult
CPT/HCPCS: 36415; 36600; 70450; 71045; 80048; 80053; 80305; 81001; 82533; 82550; 82553; 82803; 82948; 83605; 83735; 83880; 84443; 84484; 85025; 85610; 85730; 87040; 87081; 87086; 93005; 96361; 96365; 96367; 96372; 97110; 97112; 97116; 97163-GP; 97530; 99291; J0692; J0696; J1650; J1815; J2001; J2060; J3370; J3475; J3480; J7030; J7060; Q0092